=== PATIENT | female | born 1950 ===

== ENCOUNTER 2021-03-17 14:18 | Outpatient (REF) | payer MEDICARE, SELFPAY ==
--- NOTE | ~2021-03-17 | MR_ITS ---
MR LUMBAR SPINE WITHOUT IV CONTRAST CLINICAL INFORMATION: Bilateral lower extremity leg pain and weakness. COMPARISON: None available. TECHNIQUE: MRI of the lumbar spine was obtained using routine sequences without contrast. FINDINGS: S1 is partially lumbarized and shares a rudimentary disc with S2. There are 5 nonrib-bearing lumbar-type vertebral bodies. Hypoplastic ribs at the lowermost thoracic type segment. The vertebral body heights are maintained. Mild disc volume loss and disc desiccation at L3-L4, L4-L5, and L5-S1. There is no bone marrow edema. There are no acute fractures. The conus terminates at the L1 level. Bilateral renal cysts. There is dark signal intensity along the periphery of the thecal sac inseparable from the cauda equina nerve roots that is greatest at the L3-L4 through sacral levels and seen to a lesser extent along the periphery of the thecal sac throughout the remaining thoracolumbar spine, most concerning for the presence of chronic blood products in these areas. Conus terminates at the L1 level. L1-L2: Disc contour is normal. Mild bilateral facet arthropathy. No central canal stenosis and no foraminal stenosis. L2-L3: Small annular disc bulge and bilateral facet arthropathy. No central canal stenosis and no foraminal stenosis. L3-L4: Annular disc bulge with a superimposed far left lateral disc protrusion that contacts the extraforaminal left L3 nerve root. Mild narrowing of the central canal. Mild bilateral foraminal encroachment. L4-L5: Diffuse annular disc bulge and moderate bilateral facet arthropathy and ligamentum flavum thickening. Findings in concert result in mild central canal stenosis and mild bilateral foraminal encroachment. L5-S1: Diffuse annular disc bulge and moderate bilateral facet arthropathy and ligamentum flavum thickening. Prominent epidural fat. Moderate central canal stenosis. Mild bilateral foraminal encroachment. MR/MR lumbar spine wo con IMPRESSION: - Extensive intramedullary T2 signal changes involving the imaged lower thoracic spinal cord at the T10 and T11 levels extending above the thecal sac. Recommend postcontrast imaging of the lumbar spine as well as a brain MRI, head MRA, cervical spine MRI, and thoracic spine MRI with and without IV contrast, particularly given the below findings. Neurosurgical consultation advised. - There is dark signal intensity along the periphery of the thecal sac inseparable from the cauda equina nerve roots that is greatest at the L3-L4 through sacral levels and seen to a lesser extent along the periphery of the thecal sac throughout the remaining thoracolumbar spine, most concerning for the presence of chronic blood products in these areas. There is some clumping of the cauda equina nerve roots at these levels concerning for the sequela of arachnoiditis. Above follow-up imaging recommended to exclude a source of intrathecal bleeding to explain these findings. - Multilevel lumbar spondylosis, greatest at L5-S1 where multifactorial degenerative changes in epidural lipomatosis result in moderate central canal stenosis. Additional degenerative changes as discussed above. - Postoperative changes following vertebral body augmentation at the T12 level. Covering provider paged with these critical findings at 11:14 AM on 03/20/2021.
== END 2021-03-17 14:19 | disposition home or self-care (01) ==
LOC: HO.MRI 14:18
PROVIDERS: PCP Physician Assistant Medical; Visit Provider Physician Assistant Medical
DX: M54.41 Lumbago with sciatica, right side (principal)
CPT/HCPCS: 72148

== ENCOUNTER 2021-03-28 13:35 | Outpatient (REF) | payer MEDICARE, SELFPAY ==
--- NOTE | ~2021-03-28 | MR_ITS ---
EXAMINATION: MRI OF THE BRAIN WITH AND WITHOUT IV CONTRAST MRI OF THE CERVICAL SPINE WITH AND WITHOUT IV CONTRAST MRA HEAD WITHOUT CONTRAST INDICATION: Blood seen in thecal sac. COMPARISON: Lumbar spine MRI 03/17/2021. TECHNIQUE: Multiplanar multisequence MR imaging of the brain and cervical spine obtained without and following the administration of 6 mL of Gadavist without complication. Additionally, a noncontrast MRA of the head is obtained. Vascular post-processing, including 2-dimensional and 3-dimensional reformatted images were created and reviewed on an independent workstation under concurrent physician supervision. Stenoses are graded per criteria similar to NASCET. FINDINGS: BRAIN MRI: There is a developmental venous anomaly within the anterior left subinsular region. There is some mild gyriform enhancement within the left parietal and occipital lobes that is most likely related to blood brain barrier breakdown. Extensive T2 signal changes throughout the supratentorial white matter and central galileo, possibly advanced chronic microangiopathy. Chronic ischemic changes within the left deep watershed zone. There is chronic siderosis along the periphery of the left greater than right cerebral hemisphere and there are punctate foci of chronic hemosiderin staining within the occipital lobes bilaterally. There is diffuse ventricular dilatation with associated sulcal prominence, likely ex vacuo dilatation. There is no extra-axial surface collection, or herniation. The major flow voids at the skull base are preserved. There is no acute infarct on diffusion-weighted imaging. There is no intracranial hemorrhage on the gradient recalled echo acquisition. The midline structures are normal. The cerebellar tonsils are normally positioned. The cerebellum and brainstem are normal. The craniocervical junction is normal. Osseous marrow signal intensity is homogenous. The visualized soft tissues are unremarkable. CERVICAL SPINE MRI: Cervical alignment is normal. Vertebral body heights are maintained. The disc lines are preserved. There is no bone marrow edema. There are no acute fractures. There are perineural cysts bilaterally at C7-T1. No definite cervical cord signal abnormality accounting for artifact. There is no pathologic intrathecal enhancement. No significant soft tissue findings. No cervical disc herniations. No central canal stenosis and no foraminal stenosis within the thoracic spine. On the cervical spine MRI there is a possible partially imaged fluid signal intensity loculation within the left aspect of the thecal sac at T4-T5 that may mildly distort the thoracic cord which can be further assessed with the thoracic spine MRI. MRA HEAD: The anterior and posterior intracranial arterial circulations are normal in caliber without significant arterial stenosis. No acute arterial occlusions. No aneurysms and no high flow vascular malformations. MR/MR cervical spine wo/w con IMPRESSION: - A thoracic spine MRI with and without contrast is recommended as per the previous studies recommendations. On the cervical spine MRI there is a possible partially imaged fluid signal intensity loculation within the left aspect of the thecal sac at T4-T5 that may mildly distort the thoracic cord which can be further assessed with the thoracic spine MRI. There are partially imaged laminectomy changes as below this level. -There is chronic siderosis along the periphery of the left greater than right cerebral hemisphere and there are punctate foci of chronic hemosiderin staining within the occipital lobes bilaterally. - Extensive confluent T2 signal changes throughout the supratentorial white matter, possibly advanced chronic microangiopathy though nonspecific and chronic ischemic changes within the left greater than right deep watershed zone. Comparison to any prior brain imaging if available advised. - There is some mild gyriform enhancement within the left parietal and occipital lobes that is most likely related to blood brain barrier breakdown. - Left greater than right lateral ventriculomegaly, likely ex vacuo dilatation given the presence of metastases with sulcal prominence. - Unremarkable MRA of the head. - Unremarkable MRI of the cervical spine.
[2021-03-28 17:04] LABS: Blood Urea Nitrogen 28 mg/dL (9-16); Estimated Glomerular Filt Rate 43
== END 2021-03-28 13:36 | disposition home or self-care (01) ==
LOC: HO.MRI 13:35
PROVIDERS: Visit Provider Physician Assistant Medical
DX: G95.89 Other specified diseases of spinal cord (principal)
CPT/HCPCS: 36415; 70544; 70553; 72156; 82565; 84520

== ENCOUNTER 2021-03-31 13:48 | Outpatient (REF) | payer MEDICARE, SELFPAY ==
--- NOTE | ~2021-03-31 | MR_ITS ---
EXAMINATION: MRI THORACIC SPINE WITHOUT AND WITH CONTRAST MRI LUMBAR SPINE WITH CONTRAST CLINICAL INFORMATION: Lower extremity pain. Signal changes within the spinal cord. COMPARISON: Lumbar spine MRI 03/17/2021. TECHNIQUE: Multiplanar MR imaging of the thoracic spine was performed without and with contrast. Postcontrast images of the lumbar spine were also obtained. A total of 6 mL Gadavist was utilized for this examination. FINDINGS: Thoracic spine: There are chronic postoperative changes of a multilevel decompressive laminectomy extending from T5 to T7 and there is partial resection of the T4 spinous process. There is a long extramedullary intradural cystic lesion/collection along the dorsal aspect of the canal that demonstrates imaging characteristic most consistent with an arachnoid cyst. There is severe compression of the thoracic spinal cord particularly at the level of T6-T7 there is a long segment of intramedullary edema that extends from T5 to T10. There are chronic changes of a compression fracture of the T11 vertebral body. Bone cement material indicates chronic changes of a vertebral augmentation. A subtle chronic compression deformity of the T7 vertebral body is also noted. Alignment is normal. There is loss of intervertebral disc height and T2 signal intensity at multiple levels related to disc degeneration. Postcontrast images reveal no abnormal intradural enhancement. Limited visualization of intrathoracic anatomy reveals no abnormal finding. Lumbar spine: Postcontrast images of the lumbar spine reveal no abnormal intradural mass or enhancement. There are multiple well marginated benign-appearing cystic lesions visualized within both kidneys. Limited visualization the retroperitoneal anatomy reveals no abnormal finding. Psoas and paraspinal muscle groups are symmetric. MR/MR thoracic spine wo/w con IMPRESSION: There are chronic postsurgical changes within the midthoracic spine. At the site of surgery there is a long extramedullary intradural cystic lesion that most likely represents a residual or recurrent arachnoid cyst causing severe compression of the thoracic spinal cord particularly at the level of T6-T7 and there is a long segment of intramedullary edema that extends from T5 to T10. Alternative diagnostic considerations for this lesion include a spinal epidermoid cyst or neurenteric cyst therefore correlation with the patient's prior surgical report are recommended. Postcontrast imaging of the thoracic and lumbar spine is otherwise normal.
== END 2021-03-31 13:49 | disposition home or self-care (01) ==
LOC: HO.MRI 13:48
PROVIDERS: Visit Provider Physician Assistant Medical
DX: G95.89 Other specified diseases of spinal cord (principal)
CPT/HCPCS: 72149; 72157; A9585

== ENCOUNTER → 2021-09-08 10:34 | Outpatient (BNVA) | payer MEDICARE, SELFPAY | PROVIDERS: PCP Internal Medicine; Visit Provider Internal Medicine | DX: M79.604 Pain in right leg (principal); M79.605 Pain in left leg; M17.10 Unilateral primary osteoarthritis, unspecified knee; G89.0 Central pain syndrome | CPT/HCPCS: 99202 ==

== ENCOUNTER 2021-09-29 16:02 | Outpatient (REF) | payer MEDICARE, SELFPAY ==
--- NOTE | ~2021-09-29 | MR_ITS ---
EXAMINATION: MR KNEE WITHOUT CONTRAST, RIGHT CLINICAL INFORMATION: Right knee pain and swelling. Medial/anterior right knee pain for 2-3 months. COMPARISON: None. TECHNIQUE: MRI of the knee without contrast was performed using routine sequences on a high-field scanner. FINDINGS: MENISCI: Medial Meniscus: Intact. Lateral Meniscus: Intact. LIGAMENTS: Cruciate: Intact. Collateral: Intact. EXTENSOR MECHANISM: Intact. ARTICULAR CARTILAGE/BONE: Patellofemoral Compartment: Normal. Medial Compartment: Normal. Lateral Compartment: Normal. JOINT FLUID AND BURSAE: Trace joint effusion. Circumferential subcutaneous edema, most prominent anterolaterally. MR/MR knee RT wo con IMPRESSION: 1. No acute meniscal or ligamentous injury. 2. Trace joint effusion. Intact articular cartilage. No acute osseous abnormality. 3. Circumferential subcutaneous edema, most prominent anterolaterally.
== END 2021-09-29 16:03 | disposition home or self-care (01) ==
LOC: HO.MRI 16:02
PROVIDERS: Visit Provider Physical Medicine & Rehabilitation
DX: M25.561 Pain in right knee (principal)
CPT/HCPCS: 73721

== ENCOUNTER → 2022-01-13 11:13 | Outpatient (BNVA) | payer MEDICARE, SELFPAY | PROVIDERS: PCP Internal Medicine; Visit Provider Nurse Practitioner Family | DX: M17.10 Unilateral primary osteoarthritis, unspecified knee (principal); M79.604 Pain in right leg; M79.605 Pain in left leg; G89.0 Central pain syndrome | CPT/HCPCS: 99212 ==

== ENCOUNTER → 2022-01-29 14:02 | Outpatient (BNVA) | payer MEDICARE, SELFPAY | PROVIDERS: PCP Internal Medicine; Visit Provider Nurse Practitioner Family | DX: M17.10 Unilateral primary osteoarthritis, unspecified knee (principal); M79.604 Pain in right leg; M79.605 Pain in left leg; G89.0 Central pain syndrome | CPT/HCPCS: 99212 ==

== ENCOUNTER → 2022-02-27 14:00 | Outpatient (BNVA) | payer MEDICARE, SELFPAY | PROVIDERS: PCP Internal Medicine; Visit Provider Nurse Practitioner Family | DX: Z51.81 Encounter for therapeutic drug level monitoring (principal); F11.20 Opioid dependence, uncomplicated; M17.10 Unilateral primary osteoarthritis, unspecified knee; M79.604 Pain in right leg; M79.605 Pain in left leg; G89.0 Central pain syndrome | CPT/HCPCS: 99212 ==

== ENCOUNTER → 2022-03-27 12:59 | Outpatient (BNVA) | payer MEDICARE, SELFPAY | PROVIDERS: PCP Internal Medicine; Visit Provider Nurse Practitioner Family | DX: Z51.81 Encounter for therapeutic drug level monitoring (principal); F11.20 Opioid dependence, uncomplicated; M17.10 Unilateral primary osteoarthritis, unspecified knee; M79.604 Pain in right leg; M79.605 Pain in left leg; G89.0 Central pain syndrome | CPT/HCPCS: 99212 ==

== ENCOUNTER → 2022-05-22 12:46 | Outpatient (BNVA) | payer MEDICARE, SELFPAY | PROVIDERS: PCP Internal Medicine; Visit Provider Nurse Practitioner Family | DX: Z51.81 Encounter for therapeutic drug level monitoring (principal); M17.10 Unilateral primary osteoarthritis, unspecified knee; G89.0 Central pain syndrome; M79.604 Pain in right leg; M79.605 Pain in left leg | CPT/HCPCS: 99212 ==

== ENCOUNTER → 2023-04-23 10:29 | Outpatient (BNVA) | payer MEDICARE, SELFPAY | PROVIDERS: PCP Internal Medicine; Visit Provider Internal Medicine | DX: M54.16 Radiculopathy, lumbar region (principal) | CPT/HCPCS: 99212 ==

== ENCOUNTER → 2023-05-07 11:13 | Outpatient (BNVA) | payer MEDICARE, SELFPAY | PROVIDERS: PCP Internal Medicine; Visit Provider Nurse Practitioner Family | DX: G57.02 Lesion of sciatic nerve, left lower limb (principal); M54.16 Radiculopathy, lumbar region | CPT/HCPCS: 99212 ==

== ENCOUNTER 2023-05-31 13:30 | Outpatient (AMB) | payer MEDICARE, SELFPAY ==
--- NOTE | 2023-05-31 13:30 | A.OFFVIS_ITS ---
Intake Intake Visit Reasons: Gabapentin discussion per Dr. Pena Allergies Penicillins [PCN] Allergy (Severe, Verified 05/07/23 11:24) RASH erythromycin base [ERYTHROMYCIN BASE] Allergy (Intermediate, Verified 05/07/23 11:24) RASH HPI Gabapentin discussion per Dr. Pena HPI Details 72-year-old female presenting today on tele-visit for a discussion of potential gabapentin related side effects. She is currently on gabapentin 600 mg B.I.D. with good pain relief. Shortly after starting the current dose of gabapentin, she started experiencing some short-term memory impairment and occasional confusion after starting on gabapentin 600 mg BID. She also has some feelings of urinary incontinence, loss of bladder control, saddle anesthesia and weakness in her right arm and leg. She is not actively performing exercises in her occupational therapy sessions. She has had a history of UTIs in the past that have mimicked strokes in the past. She has a scheduled appointment for a lumbar MRI scan on 06/02/23. She denies fever, slurry speech, or facial drooping. [facility] Medical History (Updated 05/31/23 @ 13:43 by Tony Pena MD) Alcohol abuse Atherosclerosis of abdominal aorta Atrial fibrillation Cardiomyopathy Central pain syndrome Cerebral microvascular disease CVA (cerebral vascular accident) Epidural hematoma History of colon polyps Hyperlipidemia Hypertension Hypothyroidism Impaired fasting glucose Leg pain, bilateral Major depression in partial remission Microscopic hematuria Neurogenic bladder Numbness of feet Osteoarthritis Osteoarthritis, knee Osteoporosis SAH (subarachnoid hemorrhage) Seizure disorder Spasticity Thoracic myelopathy Vertebral compression fracture Surgical History H/O heart valve replacement with mechanical valve H/O maze procedure H/O of hysterectomy with bilateral oophorectomy History of cataract surgery Hx of cholecystectomy Mitral valve replaced Review of Systems Const All systems reviewed & are unremarkable except as noted in HPI and below Results Reviewed Results Reviewed: No imaging is available for review. Assessment & Plan Assessment & Plan (1) Neurogenic bladder: Code(s): N31.9 - Neuromuscular dysfunction of bladder, unspecified (2) Left lumbar radiculitis: Code(s): M54.16 - Radiculopathy, lumbar region (3) Leg pain, bilateral: Code(s): M79.604 - Pain in right leg; M79.605 - Pain in left leg Plan 1. I recommended the patient to wean down on gabapentin. She will stop the m orning dose starting tomorrow and then cut the nighttime dose in half over the following 2 days. ? 2. I also encouraged the patient to follow up with her neurologist for her incontinence and loss of bladder control associated with upper extremity weakness. Her last lumbar spine MRI was quite reassuring in terms of any central mechanical compression. Last cervical MRI showed some cystic lesions around the C7 area but no abnormal cord signal. I ordered a UA to rule out a UTI as a possible cause of her neurologic symptoms. ? 3. The patient will keep her appointment for L-spine MRI scan on 06/02/23. Scribed for Dr. Pena by Peter Soto, medical cash poster, on 05/31/2023. I, Dr. Pena, have personally reviewed and agree with the information entered by the scribe. Orders: Orders UA CC w/rflx Micro + Cult 05/31/23 N31.9 - Neuromuscular dysfunction of bladder, unspecified Telehealth Telehealth Location of provider rendering services: practice address Location of patient: address on file Patient Identification confirmed using: Name, : Yes Telehealth method: voice only Patient verbally consented to treatment: Yes Patient verbally consented to billing insurance company: Yes Patient informed of any privacy concerns related to visit: Yes Minutes spent on Phone/Video with Pt.: 15 Coding Level of Care Code Tele Est Pt Level 4 (55814) Diagnoses Neurogenic bladder N31.9 Left lumbar radiculitis M54.16 Leg pain, bilateral M79.604; M79.605
== END 2023-05-31 13:31 | disposition home or self-care (01) ==
LOC: HO.PMC 13:30
PROVIDERS: PCP Physician Assistant Medical; Visit Provider Internal Medicine
DX: N31.9 Neuromuscular dysfunction of bladder, unspecified (principal); M54.16 Radiculopathy, lumbar region; M79.604 Pain in right leg; M79.605 Pain in left leg
CPT/HCPCS: 99443

== ENCOUNTER → 2023-05-31 13:30 | Outpatient (BNVA) | payer MEDICARE, SELFPAY | PROVIDERS: PCP Physician Assistant Medical; Visit Provider Internal Medicine ==

== ENCOUNTER 2023-06-02 15:17 | Outpatient (REF) | payer MEDICARE, SELFPAY ==
--- NOTE | ~2023-06-02 | MR_ITS ---
EXAMINATION: MR LUMBAR SPINE WITHOUT CONTRAST CLINICAL INFORMATION: Lumbar radiculopathy. COMPARISON: Thoracic and lumbar spine MRI from 03/31/2021. Lumbar spine MRI from 03/17/2021. TECHNIQUE: MRI of the lumbar spine was obtained using routine sequences without contrast. FINDINGS: Transitional vertebral anatomy. Of note, there are differing numbering schematics used in prior exams. Prior imaging of the thoracic spine demonstrated 12 rib-bearing thoracic type vertebrae. In this setting, there is right hemisacralization of L5 with fusion of the right transverse process of L5 with the sacral ala. There is a rudimentary L5-S1 intervertebral disc. Prior compression deformity with vertebral augmentation cement in place at the level of T11. Minimal degenerative retrolisthesis of L4 on L5. Otherwise, normal anatomic alignment. Mild to moderate degenerative disc disease at all lumbar levels. Associated mixed Modic type discogenic endplate changes including mild Modic type I discogenic edema at L1-L2, L3-L4, and L4-L5. No additional suspicious marrow edema. The remaining vertebral body heights are largely maintained. Similar to prior exam, there is partial centralization of the cauda equina nerve roots within the thecal sac as well as a band of T2 hypointense material along the ventral margin of the cauda equina nerve roots (most notably from L1-L5). The conus medullaris terminates at the level of T12. The distal spinal cord is normal in appearance. Moderate subcutaneous edema within the posterior soft tissues of the back from T12-S1. No additional significant abnormalities of the paraspinal musculature. Multiple bilateral T2 hyperintense renal cysts bilaterally (no follow-up imaging recommended based on current guidelines at the time of examination). Otherwise, limited evaluation of the intra-abdominal structures without significant abnormalities. The abdominal aorta is of normal contour and caliber. AXIAL SPINAL LEVELS: T10-T11: Normal annular contour. There is moderate bilateral facet joint arthropathy. There is moderate left and mild right normal foraminal stenosis. There is no spinal canal stenosis. T11-T12: Normal annular contour. There is moderate bilateral facet joint arthropathy. There is no neural foraminal stenosis. There is no spinal canal stenosis. T12-L1: Shallow diffuse disc bulge. There is moderate bilateral facet joint arthropathy. There is mild left and no right neural foraminal stenosis. There is no spinal canal stenosis. L1-L2: Shallow diffuse disc bulge. There is moderate bilateral facet joint arthropathy. There is mild bilateral neural foraminal stenosis. There is no spinal canal stenosis. L2-L3: Mild diffuse disc bulge. There is moderate bilateral facet joint arthropathy. There is mild bilateral neural foraminal stenosis. There is no spinal canal stenosis. L3-L4: Mild diffuse disc bulge. There is moderate bilateral facet joint arthropathy. There is moderate bilateral neural foraminal stenosis. There is narrowing of the subarticular zones with mild spinal canal stenosis centrally. L4-L5: Moderate diffuse disc bulge with posterior osseous ridging. There is moderate bilateral facet joint arthropathy. There is moderate right and mild left neural foraminal stenosis. There is mild spinal canal stenosis. L5-S1: Rudimentary disc. There is moderate bilateral facet joint arthropathy. There is no neural foraminal stenosis. There is no spinal canal stenosis. MR/MR lumbar spine wo con IMPRESSION: 1. Transitional vertebral anatomy. Of note, there are differing numbering schematics used in prior exams. For the purposes of this report (and correlating with findings on prior thoracic spine MRI) there is right hemisacralization of L5. 2. Similar to prior exam, there is partial centralization of the cauda equina nerve roots within the thecal sac as well as a band of T2 hypointense material along the ventral margin of the cauda equina nerve roots (most notably from L1-L5). This may represent sequela of a chronic spinal subdural collection and/or chronic arachnoiditis. 3. Moderate multilevel degenerative spondyloarthropathy of the lumbar spine as described in detail above. Most notably, there are mild spinal canal stenoses at L3-L4 and L4-L5. Mild to moderate neural foraminal stenoses at T10-T11 and from L3-L5.
== END 2023-06-02 15:18 | disposition home or self-care (01) ==
LOC: HO.MRI 15:17
PROVIDERS: PCP Physician Assistant Medical; Visit Provider Internal Medicine
DX: M54.16 Radiculopathy, lumbar region (principal)
CPT/HCPCS: 72148

== ENCOUNTER 2023-06-09 13:33 | Day surgery (SDC) | payer MEDICARE, SELFPAY ==
[2023-06-09 13:51] VITALS: BMI 26.4
[2023-06-09 15:56] VITALS: BP 111/57; PULSE 75; RESP 16; TEMP 36.7; O2SAT 94
--- NOTE | 2023-06-09 15:58 | MHC.SHP ---
Pre-Procedural Eval Section A Date of Service: 06/09/23 The patient is an INPATIENT: No Changes since office visit: Yes Patient answered all questions The History & Physical has been completed within 30 days and I have reviewed it.: Yes Section B Chief Complaint: Sciatic neuropathy Relevant Family History (Specify if Yes): No Relevant Social History: Other (specify) Present Medications: see Short Stay Collaborative assessment Medical History: Significant History History of Previous Operations: Relevant previous surgery/procedure and date(s) Allergies: Allergies Allergy/AdvReac Type Severity Reaction Status Date / Time Penicillins [PCN] Allergy Severe RASH Verified 05/07/23 11:24 erythromycin base Allergy Intermediate RASH Verified 05/07/23 11:24 [ERYTHROMYCIN BASE] amiodarone AdvReac Unknown Unknown Verified 06/09/23 13:48 Review of Systems Sugical H&P ROS: Negative: Constitution, Cardiovascular and Respiratory and Yes, Specify: Genitourinary (UTI symptoms resolved with antibiotic course last week) Exam Surgical H&P Exam: Normal: HEENT, Normal: Heart and Normal: Lungs Plan Diagnosis/Plan: Unchanged I have reviewed the history and physical and performed a pertinent physical examination on my patient. No changes have occurred unless specified. Proceed with temporary left sciatic nerve stimulator placement. Time Spent With Patient Time: Total time managing care of this patient today ____ minutes.
--- NOTE | 2023-06-09 15:59 | P.BOP_ITS ---
Brief Operative Note Date of Service: 06/09/23 Pre-op diagnosis: Left sciatic neuropathy, intractable left leg pain Post-op diagnosis: same Procedure: Temporary left sciatic nerve stimulator placement Implants: [employer] temporary PNS system Surgeon: Tony Pena MD Anesthesia: local Was an [employer]or used for this Procedure?: No Estimated blood loss (mL): 1 Pathology: none sent Condition: stable Disposition: same day
--- NOTE | 2023-06-09 16:00 | P.OP_ITS ---
Operative Note Operative Note Date of Service: 06/09/23 Narrative: Peripheral Nerve Stimulation Temporary Lead Placement, Ultrasound-Guided, Sciatic Nerve, Left ? After the risks, benefits and alternatives were discussed with the patient and informed consent was obtained, patient was placed in the supine position and padded to foster comfort. Appropriate skin and bony landmarks were identified, and pertinent vascular structures were located. The skin overlying the needle entry site was prepped and draped in sterile fashion. Ultrasound was used to identify the popliteal artery, the peroneal nerve and the tibial nerve. After identifying and marking the intended target along the course of the sciatic nerve, the skin around the planned entry point and the subcutaneous tissues were injected with local anesthetic. An introducer needle and stimulating probe were assembled, inserted and advanced along the intended course of the sciatic nerve, taking care to maintain the proper depth of insertion as the introducer was advanced under ultrasound guidance. An out of plane approach was utilized to visualize needle placement in proximity to the peroneal and tibial components of the sciatic nerve. The introducer needle was placed midway between the two branches of the sciatic nerve. Care was taken not to puncture the popliteal artery. Multiple stimulation parameters were used to deliver stimulation to the sciatic nerve branches in concert with stimulating at multiple positions around the nerve. Nerve target acquisition was confirmed noting generation of sensory and mild motor effects (paresthesia, muscle tension, etc) in the posterior calf and ankle; correspondi ng to the distribution of the sciatic nerve as well as the patient's typical region of pain. Various electrical parameter combinations were tested, and the lead location was adjusted (physically relocated under ultrasound guidance) until the patient indicated calf and ankle paresthesia and tension overlapping the distribution of the patient?s typical region of pain. The stimulating probe was removed from the introducer and a percutaneous lead was guided through the needle and delivered to a location in similar proximity to the nerve. Final location was verified with electrical stimulation and documented. The introducer needle was removed, and the exposed end of the percutaneous lead was attached to an external stimulator unit. Various electrical parameter combinations were again tested until the patient indicated paresthesia and muscle tension overlapping the distribution of the patient?s typical region of pain. After confirming that lead impedance was in the normal range, the external unit was detached, the needle was removed, and the lead was anchored at the skin. The lead was threaded into the connector block and electrical continuity and desired patient response was confirmed. The connector block was attached to the external stimulator unit. The site was covered with a sterile occlusive dressing.? A final ultrasound image was taken to document final placement. The patient was observed for stability of vital signs and comfort.
== END 2023-06-09 16:19 | disposition home or self-care (01) ==
PROVIDERS: PCP Physician Assistant Medical; Visit Provider Internal Medicine
PROC: (CPT 64555; principal; 2023-06-09 15:00)
DX: M54.16 Radiculopathy, lumbar region (principal); I10 Essential (primary) hypertension; Z88.0 Allergy status to penicillin; Z88.8 Allergy status to other drugs, medicaments and biological substances
CPT/HCPCS: 64555; C1778

== ENCOUNTER → 2023-06-09 13:33 | Outpatient (BNV) | payer MEDICARE, SELFPAY | PROVIDERS: PCP Physician Assistant Medical; Visit Provider Internal Medicine | DX: M54.32 Sciatica, left side (principal); M79.605 Pain in left leg | CPT/HCPCS: 64555 ==

== ENCOUNTER 2023-08-06 09:16 | Outpatient (AMB) | payer MEDICARE, SELFPAY ==
--- NOTE | 2023-08-06 09:36 | MHC.OFFVIS ---
Intake Vital Signs 08/06/23 09:38 Height 5 ft 1 in BP 112/51 L Blood Pressure Location Rt brachial Position Sitting Respiration 14 Pulse 55 Pulse Source Pulse Oximeter Pulse Oximetry (%) 96 Oxygen Delivery Method Room Air Intake Visit Reasons: Sprint removal Allergies Penicillins [PCN] Allergy (Severe, Verified 08/06/23 09:37) RASH erythromycin base [ERYTHROMYCIN BASE] Allergy (Intermediate, Verified 08/06/23 09:37) RASH amiodarone Adverse Reaction (Unknown, Verified 08/06/23 09:37) Unknown Medication List - Last Reconciled 08/06/23 by Bettina Padron LPN aspirin 81 mg PO DAILY atorvastatin 40 mg PO BEDTIME biotin 1,000 mcg PO DAILY calcium carbonate-vitamin D3 600 mg-2.5 mcg (100 unit) caps PO digoxin 125 mcg PO DAILY duloxetine 60 mg PO DAILY estradiol 0.01%(0.1mg/gram) 1 g vaginal 3XW furosemide (Lasix) 10 mg PO QAM gabapentin 600 mg PO BID lactulose (Constulose) 30 mL PO BID levetiracetam (Keppra) 500 mg PO BID levothyroxine (Euthyrox) 175 mcg PO DAILY metoprolol succinate ER 50 mg PO DAILY multivitamin 1 tab PO DAILY omeprazole 20 mg PO DAILY HPI Sprint removal HPI Details 72-year-old female who presents today to the office for a sprint removal. She reports no pain in her leg while she is currently in the office. She is unsure of how helpful the device was. She is also unsure if she is currently taking any gabapentin. Past procedure: 06/09/23: Peripheral Nerve Stimulation Temporary Lead Placement, Ultrasound-Guided, Sciatic Nerve, Left: Resolution of leg pain PFSH Medical History Osteoarthritis, knee Central pain syndrome Leg pain, bilateral Vertebral compression fracture Thoracic myelopathy Spasticity Seizure disorder SAH (subarachnoid hemorrhage) Osteoporosis Osteoarthritis Numbness of feet Neurogenic bladder Microscopic hematuria Major depression in partial remission Impaired fasting glucose Hypothyroidism Hypertension Hyperlipidemia History of colon polyps Epidural hematoma CVA (cerebral vascular accident) Cerebral microvascular disease Cardiomyopathy Atrial fibrillation Atherosclerosis of abdominal aorta Alcohol abuse Surgical History H/O maze procedure H/O of hysterectomy with bilateral oophorectomy Hx of cholecystectomy History of cataract surgery H/O heart valve replacement with mechanical valve Mitral valve replaced Review of Systems Const All systems reviewed & are unremarkable except as noted in HPI and below Physical Exam Vital Signs: Last Vital Signs Pulse 55 08/06/23 09:38 Resp 14 08/06/23 09:38 BP 112/51 L 08/06/23 09:38 Pulse Ox 96 08/06/23 09:38 Oxygen Delivery Method Room Air 08/06/23 09:38 General: Appears afebrile. Alert and oriented. Mood and affect appropriate. Follows and participates in conversation appropriately. Respiratory effort is unlabored. Able to transition from sit to stand unassisted. Ambulates with bilaterally normal heel strike and toe off. Lead removed with tip intact. Results Reviewed Results Reviewed: No imaging is available for review. Assessment & Plan Assessment & Plan (1) Leg pain, bilateral: Code(s): M79.604 - Pain in right leg; M79.605 - Pain in left leg Plan The site was clean, dry, and intact. The patient reports no leg pain currently. The sprint was removed today in the office. The patient will follow up P.R.N. I encouraged her daughter to have the patient's call me when he is discharged from the hospital so we can discuss more regarding how helpful this therapy was for Radha. Scribed for Dr. Pena by Peter Soto, medical affairs specialist, on 08/06/2023. I, Dr. Pena, have personally reviewed and agree with the information entered by the scribe. Coding Level of Care Code Est Pt Level 3 (38472) Diagnoses Leg pain, bilateral M79.604; M79.605
[2023-08-06 09:38] VITALS: BP 112/51; PULSE 55; RESP 14; O2SAT 96
== END 2023-08-06 09:48 | disposition home or self-care (01) ==
PROVIDERS: PCP Internal Medicine; Visit Provider Internal Medicine
DX: M79.604 Pain in right leg (principal); M79.605 Pain in left leg
CPT/HCPCS: 99213

== ENCOUNTER → 2023-08-06 09:16 | Outpatient (BNVA) | payer MEDICARE, SELFPAY | PROVIDERS: PCP Internal Medicine; Visit Provider Internal Medicine | DX: Z45.42 Encounter for adjustment and management of neurostimulator (principal); M79.604 Pain in right leg; M79.605 Pain in left leg | CPT/HCPCS: 99212 ==

== ENCOUNTER 2023-08-20 09:58 | Outpatient (AMB) | payer MEDICARE, SELFPAY ==
--- NOTE | 2023-08-20 09:59 | A.OFFVIS_ITS ---
Intake Intake Visit Reasons: Knee pain Allergies Penicillins [PCN] Allergy (Severe, Verified 08/06/23 09:37) RASH erythromycin base [ERYTHROMYCIN BASE] Allergy (Intermediate, Verified 08/06/23 09:37) RASH amiodarone Adverse Reaction (Unknown, Verified 08/06/23 09:37) Unknown HPI Knee pain HPI Details 72-year-old female who presents today to via tele-visit for knee pain. She states that her left leg pain was resolved with the PNS trial. She was able to wean off the gabapentin and has had no pain since the device was removed. Today she reports bilateral thigh and knee pain that has been going off and on. It is not related to weight-bearing. It can come on even when she is lying down. She has not received any knee injections in the past. She states that her pain is localized on the upper right side. She is not sure if her pain is on the outside or inside. Past procedure: 06/09/23: Peripheral Nerve Stimulation T emporary Lead Placement, Ultrasound- Guided, Sciatic Nerve, Left: Resolution of left leg pain below the knee. PFSH Medical History Osteoarthritis, knee Central pain syndrome Leg pain, bilateral Vertebral compression fracture Thoracic myelopathy Spasticity Seizure disorder SAH (subarachnoid hemorrhage) Osteoporosis Osteoarthritis Numbness of feet Neurogenic bladder Microscopic hematuria Major depression in partial remission Impaired fasting glucose Hypothyroidism Hypertension Hyperlipidemia History of colon polyps Epidural hematoma CVA (cerebral vascular accident) Cerebral microvascular disease Cardiomyopathy Atrial fibrillation Atherosclerosis of abdominal aorta Alcohol abuse Surgical History H/O maze procedure H/O of hysterectomy with bilateral oophorectomy Hx of cholecystectomy History of cataract surgery H/O heart valve replacement with mechanical valve Mitral valve replaced Review of Systems Const All systems reviewed & are unremarkable except as noted in HPI and below Results Reviewed Results Reviewed: 06/02/23: MR LUMBAR SPINE WITHOUT CONTRAST FINDINGS: Transitional vertebral anatomy. Of note, there are differing numbering schematics used in prior exams. Prior imaging of the thoracic spine demonstrated 12 rib-bearing thoracic type vertebrae. In this setting, there is right hemisacralization of L5 with fusion of the right transverse process of L5 with the sacral ala. There is a rudimentary L5-S1 intervertebral disc. Prior compression deformity with vertebral augmentation cement in place at the level of T11. Minimal degenerative retrolisthesis of L4 on L5. Otherwise, normal anatomic alignment. Mild to moderate degenerative disc disease at all lumbar levels. Associated mixed Modic type discogenic endplate changes including mild Modic type I discogenic edema at L1-L2, L3-L4, and L4-L5. No additional suspicious marrow edema. The remaining vertebral body heights are largely maintained. Similar to prior exam, there is partial centralization of the cauda equina nerve roots within the thecal sac as well as a band of T2 hypointense material along the ventral margin of the cauda equina nerve roots (most notably from L1-L5). The conus medullaris terminates at the level of T12. The distal spinal cord is normal in appearance. Moderate subcutaneous edema within the posterior soft tissues of the back from T12-S1. No additional significant abnormalities of the paraspinal musculature. Multiple bilateral T2 hyperintense renal cysts bilaterally (no follow-up imaging recommended based on current guidelines at the time of examination). Otherwise, limited evaluation of the intra-abdominal structures without significant abnormalities. The abdominal aorta is of normal contour and caliber. AXIAL SPINAL LEVELS: T10-T11: Normal annular contour. There is moderate bilateral facet joint arthropathy. There is moderate left and mild right normal foraminal stenosis. There is no spinal canal stenosis. T11-T12: Normal annular contour. There is moderate bilateral facet joint arthropathy. There is no neural foraminal stenosis. There is no spinal canal stenosis. T12-L1: Shallow diffuse disc bulge. There is moderate bilateral facet joint arthropathy. There is mild left and no right neural foraminal stenosis. There is no spinal canal stenosis. L1-L2: Shallow diffuse disc bulge. There is moderate bilateral facet joint arthropathy. There is mild bilateral neural foraminal stenosis. There is no spinal canal stenosis. L2-L3: Mild diffuse disc bulge. There is moderate bilateral facet joint arthropathy. There is mild bilateral neural foraminal stenosis. There is no spinal canal stenosis. L3-L4: Mild diffuse disc bulge. There is moderate bilateral facet joint arthropathy. There is moderate bilateral neural foraminal stenosis. There is narrowing of the subarticular zones with mild spinal canal stenosis centrally. L4-L5: Moderate diffuse disc bulge with posterior osseous ridging. There is moderate bilateral facet joint arthropathy. There is moderate right and mild left neural foraminal stenosis. There is mild spinal canal stenosis. L5-S1: Rudimentary disc. There is moderate bilateral facet joint arthropathy. There is no neural foraminal stenosis. There is no spinal canal stenosis. IMPRESSION: 1. Transitional vertebral anatomy. Of note, there are differing numbering schematics used in prior exams. For the purposes of this report (and correlating with findings on prior thoracic spine MRI) there is right hemisacralization of L5. 2. Similar to prior exam, there is partial centralization of the cauda equina nerve roots within the thecal sac as well as a band of T2 hypointense material along the ventral margin of the cauda equina nerve roots (most notably from L1- L5). This may represent sequela of a chronic spinal subdural collection and/or chronic arachnoiditis. 3. Moderate multilevel degenerative spondyloarthropathy of the lumbar spine as described in detail above. Most notably, there are mild spinal canal stenoses at L3-L4 and L4-L5. Mild to moderate neural foraminal stenoses at T10-T11 and from L3-L5. 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 Her MRI is not significant for any mechanical compressive issues but does have some subtle signs of chronic arachnoiditis that might be leading to nerve irritation. We had undertaken the sciatic nerve stimulator for lower leg pain in a similar setting and it was effective for that target area. I offered to place a femoral nerve stimulator for her thigh and knee pain which may work similarly and could be done without the need to potentially stop her Coumadin. She is hesitant to undertake another round of PNS therapy at this time. Once again I offered lumbar spinal cord stimulation as a potential therapy which would require the Coumadin to be stopped and bridge with Lovenox. They are aware of this option and will let me know whenever they would like to proceed further with it. Scribed for Dr. Pena by Peter Soto, medical planner, on 08/20/2023. I, Dr. Pena, have personally reviewed and agree with the information entered by the scribe. Telehealth Telehealth Location of provider rendering services: practice address Location of patient: address on file Patient Identification confirmed using: Name, : Yes Telehealth method: video Patient verbally consented to treatment: Yes Patient verbally consented to billing insurance company: Yes Patient informed of any privacy concerns related to visit: Yes Minutes spent on Phone/Video with Pt.: 16 Coding Level of Care Code Tele Est Pt Level 4 (14110) Diagnoses Left lumbar radiculitis M54.16 Arachnoiditis G03.9
--- OUTSIDE RECORDS SUMMARY | 2023-08-20 10:00 | XMS_ITS | Continuity of Care Document ---
Author Name Unknown Organization [facility] Address [address] [place] [phone]- Care Team Providers Care Horticultural Farmworker Name Role Phone Concetta Kingsley Primary Care Physician ( [phone] Encounter [facility] Date(s): 08/03/23 - 08/10/23 [facility] [address] [place] [id number]- Attending Physician: Armen Urban MD Referring Physician: Concetta Kingsley Allergies, Adverse Reactions, Alerts Substance Reaction Severity Status erythromycin Nausea Active penicillin anaphalaxis Active Amiodarone Hydrochloride HALLUCINATING Ac tive Immunizations Given and Recorded Vaccine Date Status Refusal Reason SARS-CoV-2 (COVID-19) mRNA-1273 vaccine 04/18/22 R ecorded SARS-CoV-2 (COVID-19) mRNA-1273 vaccine 12/03/21 R ecorded SARS-CoV-2 (COVID-19) mRNA-1273 vaccine 03/07/21 R ecorded SARS-CoV-2 (COVID-19) mRNA-1273 vaccine 02/07/21 R ecorded pneumococcal 23-valent vaccine 12/05/10 Given Pneumococcal Vaccine (oldterm) 1 12/22/04 Given influenza virus vaccine, inactivated 2 12/22/04 Gi aaron 1Result Comment: Lot #[id number] 2Result Comment: lot # [id number] Medications acetaminophen 325 mg oral tablet 650 mg, 2, tablet, By Mouth, Every 4 hours, Refills 0, Maintenance, 03/14/19 9:25:30 EDT Start Date: 03/14/19 Status: Ordered alendronate 70 mg oral tablet 1 tablet, By Mouth, Every week, OR MEDICATION OF THE DAY., # 12 tablet, 4 Refills, Maintenance, 01/26/23 11:51:00 EST, [facility] WBP, 155, cm, 01/18/23 8:51:00 EST, Height, 68.4, kg,09/15/22 9:47:00 EDT, Dry Weight Start Date: 01/26/23 Status: Ordered aspirin 81 mg oral enteric coated tablet 1 tablet, By Mouth, Daily, # 30 tablet, 0 Refills, Maintenance, EC Tablet Start Date: 10/19/11 Status: Ordered atorvastatin 40 mg oral tablet 1 tablet = 40 mg, By Mouth, Daily at supper, 0 Refills, Maintenance Start Date: 03/14/19 Status: Ordered biotin 1000 mcg oral tablet 1 tablet = 1,000 mcg, By Mouth, Daily, # 30 tablet, 0 Refills, Maintenance, 06/04/22 14:36:00 EDT, Tablet, Partial fill upon patient request if the prescription is for a schedule II opioid drug. Start Date: 06/04/22 Status: Ordered Botox 100 units injection See Instructions, 200 units for MD to inject, # 1 kit, 3 Refills, Maintenance, 11/05/22 20:25:00 EST, Partial fill upon patient request if the prescription is for a schedule II opioid drug. Start Date: 11/05/22 Status: Ordered Caltrate 600 + D 2 tablets, By Mouth, Daily, 0 Refills, Maintenance, 06/04/22 14:25:00 EDT, Partial fill upon patient request if the prescription is for a schedule II opioid drug. Start Date: 06/04/22 Status: Ordered Circaid JuxtaFit wraps Circaid JuxtaFit wraps, See Instructions, # 2 each, Refills 0, Tot. Refills 0, Maintenance, Dx: history of stroke, right hemiparesis with spasticity, wheelchair-bound, edema of both lower [id number] mmHg, 07/09/22 10:19:00 EDT, Supply Start Date: 07/09/22 Status: Ordered compression anklet socks compression anklet socks, See Instructions, # 5 each, Refills 0, Tot. Refills 0, Maintenance, For use with the circaid juxtafit wraps to control swelling, 07/09/22 10:21:00 EDT, Supply Start Date: 07/09/22 Status: Ordered digoxin 0.125 mg oral tablet 0.125 mg, By Mouth, Daily, Refills 0, Maintenance, 01/06/19 11:56:51 EST Start Date: 01/06/19 Status: Ordered docusate sodium 100 mg oral capsule = 100 mg, By Mouth, Daily at supper, 0 Refills, Maintenance, 09/14/22 22:46:00 EDT, Partial fill upon patient request if the prescription is for a schedule II opioid drug. Start Date: 09/14/22 Status: Ordered docusate sodium 150 mg/15 ml oral liquid 10 mL = 100 mg, By Mouth, 2 times a day, 0 Refills, Maintenance, 01/06/19 11:58:28 EST, Liquid Start Date: 01/06/19 Status: Ordered duloxetine 20 mg oral enteric coated capsule 2 capsule = 40 mg, By Mouth, Daily, 0 Refills, Maintenance, 03/14/19 9:24:09 EDT Start Date: 03/14/19 Status: Ordered furosemide 20 mg oral tablet 20 mg, 1, tablet, By Mouth, Daily, Refills 0, Maintenance, 07/09/22 10:03:00 EDT, Partial fill uponpatient request if the prescription is for a schedule II opioid drug. Start Date: 07/09/22 Status: Ordered gabapentin 600 mg oral tablet 1 tablet = 600 mg, By Mouth, 2 times a day, # 90 tablet, 5 Refills, Maintenance, 06/04/22 14:21:00 EDT, Tablet, Partial fill upon patient request if the prescription is for a schedule II opioid drug. Start Date: 06/04/22 Status: Ordered Gemtesa 75 mg oral tablet 1 tablet = 75 mg, By Mouth, Daily at bedtime, # 30 tablet, 0 Refills, Maintenance, 06/04/22 14:34:00 EDT, Tablet, Partial fill upon patient request if the prescription is for a schedule II opioid drug. Start Date: 06/04/22 Status: Ordered Keppra 500 mg oral tablet 1 tablet = 500 mg, By Mouth, 2 times a day, 0 Refills, Maintenance, 01/06/19 11:59:51 EST, Tablet Start Date: 01/06/19 Status: Ordered Lactulose 0 Refills, Maintenance, 05/19/23 14:28:00 EDT, Partial fill upon patient request if the prescription is for a schedule II opioid drug. Start Date: 05/19/23 Status: Ordered levothyroxine 175 mcg (0.175 mg) oral capsule 1 capsule = 175 mcg, By Mouth, Daily, # 30 capsule, 0 Refills, Maintenance, 09/14/22 22:43:00 EDT, Capsule, Partial fill upon patient request if the prescription is for a schedule II opioid drug. Start Date: 09/14/22 Status: Ordered metoprolol 50 mg oral tablet 50 mg, 1, tablet, By Mouth, Daily, Refills 0, Maintenance, 09/09/22 10:43:00 EDT, Partial fill uponpatient request if the prescription is for a schedule II opioid drug. Start Date: 09/09/22 Status: Ordered Multivitamin With Minerals 1 tablet, By Mouth, Daily, 0 Refills, Maintenance, 03/14/19 9:22:00 EDT Start Date: 03/14/19 Status: Ordered Omeprazole By Mouth, Daily, 0 Refills, Maintenance, 05/19/23 14:28:00 EDT, Partial fill upon patient request if the prescription is for a schedule II opioid drug. Start Date: 05/19/23 Status: Ordered PreforMix P-2 PreforMix P-2, See Instructions, # 180 Gm, Refills 0, Tot. Refills 0, Maintenance, Ketamine 10%,Baclofen 2%, Gabapentin 10%,imipramine 3%, Nifedipine 2%, Bupivacaine 2% in Liposomal cream, 11/17/18 11:31:45 EST, Compound Start Date: 11/17/18 Status: Ordered senna - oral tablet 2 tablet, By Mouth, Daily, PRN for constipation, daily dosing, no prn, # 60 tablet, 0 Refills, Maintenance, 09/09/22 10:37:00 EDT, Tablet, Partial fill upon patient request if the prescription is fora schedule II opioid drug. Start Date: 09/09/22 Status: Ordered warfarin 3 mg oral tablet 1 tablet = 3 mg, By Mouth, Daily, wednesday, wednesday, wednesday, , wednesday, # 30 tablet, 0 Refills, Maintenance, 09/14/22 22:41:00 EDT, Tablet, Partial fill upon patient request if the prescription is for a schedule II opioid drug. Start Date: 09/14/22 Status: Ordered warfarin 4 mg oral tablet 1 tablet = 4 mg, By Mouth, Daily, taken Wednesday, # 30 tablet, 0 Refills, Maintenance, 09/14/22 22:41:00 EDT, Tablet, Partial fill upon patient request if the prescription is for a schedule II opioid drug. Start Date: 09/14/22 Status: Ordered Problem List Condition Confirmation Course Effective Dates Status Health St atus Informant CVA (cerebrovascular accident) Confirmed Active COVID-19 1 Confirmed 09/16/22 Active PAF (paroxysmal atrial fibrillation) Confirmed Active 1Problem added by Discern Expert Vital Signs Most recent to oldest [Reference Range]: 1 Height 155 cm (08/03/23 11:06 AM) Oxygen Saturation [94-100 %] 96 % (08/03/23 11:06 AM) Pulse Rate [55-90 bpm] 60 bpm (08/03/23 11:06 AM) Blood Pressure [90-138/55-84 mm Hg] 120/ 44mm Hg (08/03/23 11:06 AM) Mode of Delivery (Oxygen) Room air (08/03/23 11:06 AM) Blood pressure sites Arm, right (08/03/23 11:06 AM) Social History Social History Type Response Smoking Status Former smoker entered on: 08/26/17 Sex Patient Care team information Care Team Personnel Name: Rosa Patterson RN Position: [facility] RN Member Role: Primary Care Nurse Name: Karyna Alvarez RN Position: [facility] RN Member Role: Primary Care Nurse Name: Diana Love RN Position: [facility] AMB Nurse Member Role: Primary Care Nurse Name: Clive Diamond RN Position: [facility] RN Member Role: Primary Care Nurse Name: Balbina Ma RN Position: [facility] AMB Nurse Member Role: Primary Care Nurse Name: Marija Maurer RN Position: [facility] RN Member Role: Primary Care Nurse Name: Dolores Johnson RN Position: [facility] Slick RN Member Role: Primary Care Nurse Name: Era Donis RN Position: [facility] RN Member Role: Primary Care Nurse Name: Tello Handy RN Position: S RN Member Role: Primary Care Nurse Name: Jenny Pham RN Position: [facility] RN Member Role: Primary Care Nurse Name: Chelsi Fontanez RN Position: [facility] ED RN W/OE and Tasks Member Role: Primary Care Nurse Name: Denise Lopez RN Position: [facility] Remote Sensing Technician Member Role: Primary Care Nurse Name: Farzad Moseley RN Position: [facility] RN Member Role: Primary Care Nurse Name: Concetta Kingsley Position: Reference Physician Member Role: PCP Address: Address: [address] [place] [id number] Name: Vicky Hunter RN Position: [facility] RN Member Role: Primary Care Nurse Name: Josselyn Amezcua RN Position: [facility] RN Member Role: Primary Care Nurse Care Team Related Persons Name: YOVANY PRIETO Address: home [address] [place] [address] Name: LAMAR ARNOLD Address: home [address] [place] [address]
--- OUTSIDE RECORDS SUMMARY | 2023-08-20 10:01 | XMS_ITS | Continuity of Care Document ---
Author Name Unknown Organization [facility] Address [address] [place] [address]- Care Team Providers Care Trestleman Name Role Phone Concetta Kingsley Primary Care Physician [facility]23 - 06/15/23 [facility] [address] [place] [address] Allergies, Adverse Reactions, Alerts Substance Reaction Severity [...] 2 12/22/04 Gi aaron 1Result Comment: Lot #[id number] 2Result Comment: lot # [id number] Medications acetaminophen 325 mg oral tablet 650 mg, 2, tablet, By Mouth, Every 4 hours, Refills 0, Maintenance, 03/14/19 9:25:30 EDT Start Date: 03/14/19 Status: Ordered alendronate 70 mg oral tablet 1 tablet, By Mouth, Every week, OR MEDICATION OF THE DAY., # 12 tablet, 4 Refills, Maintenance, 01/26/23 11:51:00 EST, [facility] WBP, 155, cm, 02/27/23 8:51:00 EST, Height, 68.4, kg,09/15/22 9:47:00 EDT, [...] with spasticity, wheelchair-bound, edema of both lower hcdmclsoecc67-59 mmHg, 07/09/22 10:19:00 EDT, Supply Start Date: [...] Confirmed Active 1Problem added by Discern Expert Social History Social History Type Response Smoking Status Former smoker entered on: 08/26/17 Sex Patient Care team information Care Team Personnel Name: Rosa Patterson RN Position: [facility] RN Member Role: Primary Care Nurse Name: Karyna Alvarez RN Position: [facility] Office Staff Member Role: Primary Care Nurse Name: Diana Love RN Position: [facility] Nurse Member Role: Primary Care Nurse Name: Clive Diamond RN Position: [facility] RN Member Role: Primary Care Nurse Name: Balbina Ma RN Position: [facility] Nurse Member Role: Primary Care Nurse Name: Marija Maurer RN Position: [facility] RN Member Role: Primary Care Nurse Name: Dolores Johnson RN Position: [facility] Slick RN Member Role: Primary Care Nurse Name: Era Donis RN Position: [facility] RN Member Role: Primary Care Nurse Name: Tello Handy RN Position: [facility] RN Member Role: Primary Care Nurse Name: Jenny Pham RN Position: [facility] RN Member Role: Primary Care Nurse Name: Chelsi Fontanez RN Position: [facility] ED RN W/OE and Tasks Member Role: Primary Care Nurse Name: Denise Lopez RN Position: [facility] Hospital Career Development Coordinator Member Role: Primary Care Nurse Name: Farzad Moseley RN Position: [facility] RN Member Role: Primary Care Nurse Name: Concetta Kingsley Position: Reference Physician Member Role: PCP Address: Address: [address] [place] [id number]- Name: Vicky Hunter RN Position: [facility] RN Member Role: Primary Care Nurse Name: Josselyn Amezcua RN Position: [facility] RN Member Role: Primary Care Nurse Care Team Related Persons Name: GIORGINI, YOVANY Address: home [address] [place] [address] Name: LAMAR ARNOLD Address: home [address] [place] [address]
--- OUTSIDE RECORDS SUMMARY | 2023-08-20 10:01 | XMS_ITS | Continuity of Care Document ---
Author Name Unknown Organization [facility] Address [address] [place] [phone]- Care Team Providers Care Anvil Worker Name Role Phone Concetta Kingsley Primary Care Physician [facility]): 06/28/23 - 07/28/23 [facility] [address] [place] [id number] Allergies, Adverse Reactions, Alerts [...] 2 12/22/04 Gi aaron 1Result Comment: Lot #[id number] 2Result Comment: lot # [id number] Medications acetaminophen 325 mg oral tablet 650 [...] with spasticity, wheelchair-bound, edema of both lower yuwxrdvjdnw46-81 mmHg, 07/09/22 10:19:00 EDT, Supply Start Date: [...] Team Personnel Name: Rosa Patterson RN Position: [facility] RN Member Role: Primary Care Nurse Name: Karyna Alvarez RN Position: [facility] Office Staff Member Role: Primary Care Nurse Name: Diana Love RN Position: [facility] Nurse Member Role: Primary Care Nurse Name: Clive Diamond RN Position: [facility] RN Member Role: Primary Care Nurse Name: Balbina Ma RN Position: [facility] Nurse Member Role: Primary Care Nurse Name: Marija Maurer RN Position: [facility] RN Member Role: Primary Care Nurse Name: Dolores Johnson RN Position: [facility] Rad RN Member Role: Primary Care Nurse Name: Era Donis RN Position: [facility] RN Member Role: Primary Care Nurse Name: Tello Handy RN Position: [facility] ED RN W/OE and Tasks Member Role: Primary Care Nurse Name: Jenny Pham RN Position: [facility] RN Member Role: Primary Care Nurse Name: Chelsi Fontanez RN Position: [facility] ED RN W/OE and Tasks Member Role: Primary Care Nurse Name: Denise Lopez RN Position: [facility] Hospital Journeyman Millwright Member Role: Primary Care Nurse Name: Farzad Moseley RN Position: [facility] RN Member Role: Primary Care Nurse Name: Concetta Kingsley Position: Reference Physician Member Role: PCP Address: Address: [address] [place] [id number] Name: Vicky Hunter RN Position: [facility] RN Member Role: Primary Care Nurse Name: Josselyn Amezcua RN Position: [facility] RN Member Role: Primary Care Nurse Care Team Related Persons Name: YOVANY PRIETO Address: home [address] [place] [address] Name: LAMAR ARNOLD Address: [address] [place] [address]
--- OUTSIDE RECORDS SUMMARY | 2023-08-20 10:01 | XMS_ITS | Continuity of Care Document ---
Author Name Unknown Organization [facility] Address [address] [place] [id number]- Care Team Providers Care Product Development Carpenter Name Role Phone Concetta Kingsley Primary Care Physician ( [phone] [facility] 05/12/23 - 06/11/23 [facility] [address] [place] [id number] Allergies, Adverse Reactions, Alerts Substance Reaction Severity [...] 2 12/22/04 Gi aaron 1Result Comment: Lot #[id number] 2Result Comment: lot # [id number] Medications acetaminophen 325 mg oral tablet 650 [...] with spasticity, wheelchair-bound, edema of both lower fvxfeqghufx38-57 mmHg, 07/09/22 10:19:00 EDT, Supply Start Date: [...] Team Personnel Name: Rosa Patterson RN Position: [facility] RN Member Role: Primary Care Nurse Name: Karyna Alvarez RN Position: [facility] Office Staff Member Role: Primary Care Nurse Name: Diana Love RN Position: [facility] Nurse Member Role: Primary Care Nurse Name: Clive Diamond RN Position: [facility] RN Member Role: Primary Care Nurse Name: Balbina Ma RN Position: [facility] Nurse Member Role: Primary Care Nurse Name: Marija Maurer RN Position: [facility] RN Member Role: Primary Care Nurse Name: Dolores Johnson RN Position: [facility] Slick RN Member Role: Primary Care Nurse Name: Era Donis RN Position: [facility] RN Member Role: Primary Care Nurse Name: Tello Handy RN Position: [facility] RN Member Role: Primary Care Nurse Name: Jenny Pham RN Position: [facility] RN Member Role: Primary Care Nurse Name: Chelsi Fontanez RN Position: [facility] ED RN W/OE and Tasks Member Role: Primary Care Nurse Name: Denise Lopez RN Position: [facility] Hospital Butter Fat Tester Member Role: Primary Care Nurse Name: Farzad Moseley RN Position: [facility] RN Member Role: Primary Care Nurse Name: Concetta Kingsley Position: Reference Physician Member Role: PCP Address: Address: [address] [place] [id number]- Name: Vicky Hunter RN Position: [facility] RN Member Role: Primary Care Nurse Name: Josselyn Amezcua RN Position: [facility] RN Member Role: Primary Care Nurse Care Team Related Persons Name: GIORGINI, YOVANY Address: home [address] [place] [address] Name: LAMAR ARNOLD Address: home [address] [place] [address]
--- OUTSIDE RECORDS SUMMARY | 2023-08-20 10:03 | XMS_ITS | Continuity of Care Document ---
Author Name Unknown Organization [facility] Address [address] [place] [id number]- Care Team Providers Care Good Humor Vendor Name Role Phone Concetta Kingsley Primary Care Physician [facility] 05[facility]28[facility]23 - 06/27/23 [facility] [address] [place] [id number] Allergies, Adverse Reactions, Alerts Substance Reaction Severity [...] 2 12/22/04 Gi aaron 1Result Comment: Lot #[id number] 2Result Comment: lot # [id number] Medications acetaminophen 325 mg oral tablet 650 [...] with spasticity, wheelchair-bound, edema of both lower ieurqlgwhdd03-68 mmHg, 07/09/22 10:19:00 EDT, Supply Start Date: [...] Care Nurse Name: Karyna Alvarez RN Position: [facility] Office Staff Member Role: Primary Care Nurse Name: Diana Love RN Position: [facility] Nurse Member Role: Primary Care Nurse Name: Clive Diamond RN Position: [facility] RN Member Role: Primary Care Nurse Name: Balbina Ma RN Position: [facility] Nurse Member Role: Primary Care Nurse Name: Marija Maurer RN Position: [facility] RN Member Role: Primary Care Nurse Name: Dolores Johnson RN Position: [facility] Slick RN Member Role: Primary Care Nurse Name: Era Donis RN Position: [facility] RN Member Role: Primary Care Nurse Name: Tello Handy RN Position: [facility] RN Member Role: Primary Care Nurse Name: Jenny Pham RN Position: [facility] RN Member Role: Primary Care Nurse Name: Chelsi Fontanez RN Position: [facility] ED RN W/OE and Tasks Member Role: Primary Care Nurse Name: Denise Lopez RN Position: [facility] Hospital Crew Boat Operator Member Role: Primary Care Nurse Name: Farzad Moseley RN Position: [facility] RN Member Role: Primary Care Nurse Name: Concetta Kingsley Position: Reference Physician Member Role: PCP Address: Address: [address] [place] [id number]- Name: Vicky Hunter RN Position: [facility] RN Member Role: Primary Care Nurse Name: Josselyn Amezcua RN Position: [facility] RN Member Role: Primary Care Nurse Care Team Related Persons Name: YOVANY PRIETO Address: home [address] [place] [address] Name: LAMAR ARNOLD Address: home [address] [place] [address]
== END 2023-08-20 09:59 | disposition home or self-care (01) ==
LOC: HO.PMC 09:58
PROVIDERS: PCP Internal Medicine; Visit Provider Internal Medicine
DX: M25.569 Pain in unspecified knee (principal); M54.16 Radiculopathy, lumbar region; G03.9 Meningitis, unspecified
CPT/HCPCS: 99442

== ENCOUNTER → 2023-08-20 09:58 | Outpatient (BNVA) | payer MEDICARE, SELFPAY | PROVIDERS: PCP Internal Medicine; Visit Provider Internal Medicine ==

== ENCOUNTER 2023-10-18 09:59 | Outpatient (REF) | payer MEDICARE, SELFPAY ==
[2023-10-18 12:45] VITALS: BMI 26.4
[2023-10-18 12:46] VITALS: BP 109/56; PULSE 93; RESP 18; TEMP 35.8; O2SAT 97
== END 2023-10-18 10:00 | disposition home or self-care (01) ==
LOC: HO.MS 09:59
PROVIDERS: PCP Physician Assistant Medical; Visit Provider Ophthalmology
PROC: (CPT 66821; principal; 2023-10-18 11:50)
DX: H26.492 Other secondary cataract, left eye (principal)
CPT/HCPCS: 66821

== ENCOUNTER 2024-11-27 10:18 | Outpatient (AMB) | payer MEDICARE, SELFPAY ==
[2024-11-27 10:23] VITALS: BP 108/55; PULSE 78; RESP 15; O2SAT 97; BMI 25.5
--- NOTE | 2024-11-27 10:23 | MHC.OFFVIS ---
Vital Signs 11/27/24 10:23 Height 5 ft 1 in Weight 135 lb BMI 25.5 BP 108/55 L Blood Pressure Location Lt brachial Position Sitting Respiration 15 Pulse 78 Pulse Source Pulse Oximeter Pulse Oximetry (%) 97 Oxygen Delivery Method Room Air Intake Visit Reasons: Knee Pain Allergies Penicillins [PCN] Allergy (Severe, Verified 11/27/24 10:24) RASH erythromycin base [ERYTHROMYCIN BASE] Allergy (Intermediate, Verified 11/27/24 10:24) RASH amiodarone Adverse Reaction (Unknown, Verified 11/27/24 10:24) Unknown Medication List - Last Reconciled 11/27/24 by Bettina Padron LPN aspirin 81 mg PO DAILY atorvastatin 40 mg PO BEDTIME biotin 1,000 mcg PO DAILY calcium carbonate-vitamin D3 600 mg-2.5 mcg (100 unit) caps PO digoxin 125 mcg PO DAILY duloxetine 60 mg PO DAILY estradiol 0.01%(0.1mg/gram) 1 g vaginal 3XW furosemide (Lasix) 10 mg PO QAM gabapentin 600 mg PO BID lactulose (Constulose) 30 mL PO BID levothyroxine (Euthyrox) 175 mcg PO DAILY metoprolol succinate ER 50 mg PO DAILY multivitamin 1 tab PO DAILY omeprazole 20 mg PO DAILY HPI HPI Knee Pain: Details: 74-year-old female with chronic neuropathic pain of bilateral lower extremities presenting for follow-up. She describes her pain is most bothersome around her left knee area in the distal thigh and proximal tibial region. However it tends to wax and wane and move around. She also complains of pain in her right thigh and knee region. She previously had a temporary PNS device placed for left calf and foot pain which she responded to extremely well and that pain has since not come back. Pain today is described as aching stabbing sensation that comes and goes. Does not wake her from sleep; sometimes keeps her up. PFSH Medical History Osteoarthritis, knee Central pain syndrome Leg pain, bilateral Vertebral compression fracture Thoracic myelopathy Spasticity Seizure disorder SAH (subarachnoid hemorrhage) Osteoporosis Osteoarthritis Numbness of feet Neurogenic bladder Microscopic hematuria Major depression in partial remission Impaired fasting glucose Hypothyroidism Hypertension Hyperlipidemia History of colon polyps Epidural hematoma CVA (cerebral vascular accident) Cerebral microvascular disease Cardiomyopathy Atrial fibrillation Atherosclerosis of abdominal aorta Alcohol abuse Surgical History H/O maze procedure H/O of hysterectomy with bilateral oophorectomy Hx of cholecystectomy History of cataract surgery H/O heart valve replacement with mechanical valve Mitral valve replaced Physical Exam Vital Signs: Last Vital Signs Pulse 78 11/27/24 10:23 Resp 15 11/27/24 10:23 BP 108/55 L 11/27/24 10:23 Pulse Ox 97 11/27/24 10:23 Oxygen Delivery Method Room Air 11/27/24 10:23 BMI result Body Mass Index 25.5 Sitting comfortably in wheelchair. Tenderness to palpation in the left distal quadriceps tendon as well as patella and infrapatellar region. Assessment & Plan Assessment & Plan (1) Osteoarthritis, knee: Code(s): M17.10 - Unilateral primary osteoarthritis, unspecified knee Category: Medical (2) Leg pain, bilateral: Code(s): M79.604 - Pain in right leg; M79.605 - Pain in left leg Category: Medical (3) Chronic pain of left knee: Code(s): M25.562 - Pain in left knee; G89.29 - Other chronic pain Category: Medical Plan Patient has had bilateral neuropathic chronic leg pain in the past. She has responded extremely well to a trial of sciatic nerve stimulation on the left side. At this time her pain appears to be more concentrated around the left knee area, with somewhat less intensity of a similar nature on the right side. I think this is again a combination of both osteoarthritic as well as chronic neuropathic pain. She would benefit from a trial of left saphenous nerve stimulator placement. We will proceed with temporary left saphenous nerve stimulator placement followed by the right side 2 months later. Patient expressed understanding and is on board with the plan. Coding Level of Care Code Est Pt Level 4 (27176) Diagnoses Osteoarthritis, knee M17.10 Leg pain, bilateral M79.604; M79.605 Chronic pain of left knee M25.562; G89.29
== END 2024-11-27 10:45 | disposition home or self-care (01) ==
PROVIDERS: PCP Physician Assistant Medical; Visit Provider Internal Medicine
DX: M17.10 Unilateral primary osteoarthritis, unspecified knee (principal); M79.604 Pain in right leg; M79.605 Pain in left leg; M25.562 Pain in left knee; G89.29 Other chronic pain
CPT/HCPCS: 99214

== ENCOUNTER → 2024-11-27 10:18 | Outpatient (BNVA) | payer MEDICARE, SELFPAY | PROVIDERS: PCP Physician Assistant Medical; Visit Provider Internal Medicine | DX: M17.10 Unilateral primary osteoarthritis, unspecified knee (principal); M79.604 Pain in right leg; M79.605 Pain in left leg; M25.562 Pain in left knee; G89.29 Other chronic pain | CPT/HCPCS: 99212 ==

== ENCOUNTER 2024-12-14 06:22 | Outpatient (REF) | payer MEDICARE, SELFPAY | END 2024-12-14 06:23 | disposition home or self-care (01) | LOC: CF 06:22 | PROVIDERS: Visit Provider Internal Medicine | DX: M25.562 Pain in left knee (principal); G89.29 Other chronic pain | CPT/HCPCS: 64555; C1778; J2003 ==

== ENCOUNTER 2024-12-14 11:41 | Outpatient (AMB) | payer MEDICARE, SELFPAY ==
[2024-12-14 11:59] VITALS: BP 98/47; PULSE 90; O2SAT 96; BMI 25.5
--- NOTE | 2024-12-14 11:59 | A.OFFVIS_ITS ---
Vital Signs 12/14/24 11:59 Height 5 ft 1 in Weight 135 lb BMI 25.5 BP 98/47 L Blood Pressure Location Lt brachial Position Sitting Pulse 90 Pulse Source Pulse Oximeter Pulse Oximetry (%) 96 Oxygen Delivery Method Room Air Intake Visit Reasons: Left saphenous Sprint Corrosion Control Technician Required: No Allergies Penicillins [PCN] Allergy (Severe, Verified 12/14/24 12:00) RASH erythromycin base [ERYTHROMYCIN BASE] Allergy (Intermediate, Verified 12/14/24 12:00) RASH amiodarone Adverse Reaction (Unknown, Verified 12/14/24 12:00) Unknown Medication List - Last Reconciled 12/14/24 by Kayleen Cruz, SENIOR [employer]ALEGAL aspirin 81 mg PO DAILY atorvastatin 40 mg PO BEDTIME biotin 1,000 mcg PO DAILY calcium carbonate-vitamin D3 600 mg-2.5 mcg (100 unit) caps PO digoxin 125 mcg PO DAILY duloxetine 60 mg PO DAILY estradiol 0.01%(0.1mg/gram) 1 g vaginal 3XW furosemide (Lasix) 10 mg PO QAM gabapentin 600 mg PO BID lactulose (Constulose) 30 mL PO BID levothyroxine (Euthyrox) 175 mcg PO DAILY metoprolol succinate ER 50 mg PO DAILY multivitamin 1 tab PO DAILY omeprazole 20 mg PO DAILY HPI HPI Left saphenous Sprint: Details: Patient presents for scheduled procedure. Denies any recent cough, cold, infection, fever or other significant changes in medical history since last office visit. PFSH Medical History Osteoarthritis, knee Central pain syndrome Leg pain, bilateral Vertebral compression fracture Thoracic myelopathy Spasticity Seizure disorder SAH (subarachnoid hemorrhage) Osteoporosis Osteoarthritis Numbness of feet Neurogenic bladder Microscopic hematuria Major depression in partial remission Impaired fasting glucose Hypothyroidism Hypertension Hyperlipidemia History of colon polyps Epidural hematoma CVA (cerebral vascular accident) Cerebral microvascular disease Cardiomyopathy Atrial fibrillation Atherosclerosis of abdominal aorta Alcohol abuse Surgical History H/O maze procedure H/O of hysterectomy with bilateral oophorectomy Hx of cholecystectomy History of cataract surgery H/O heart valve replacement with mechanical valve Mitral valve replaced Physical Exam Vital Signs: Last Vital Signs Pulse 90 12/14/24 11:59 BP 98/47 L 12/14/24 11:59 Pulse Ox 96 12/14/24 11:59 Oxygen Delivery Method Room Air 12/14/24 11:59 BMI result Body Mass Index 25.5 Office Procedures Details: Peripheral Nerve Stimulation Temporary Lead Placement, Ultrasound-Guided, Saphenous Nerve, Left ? After the risks, benefits and alternatives were discussed with the patient and informed consentwas obtained, patient was placed in the supine position and padded to foster comfort. Appropriate skin and bony landmarks were identified, and pertinent vascular structures were located. The skin overlying the needle entry site was prepped and draped in sterile fashion. Ultrasound was used to identify the femoral artery, the femoral vein and the saphenous nerve. After identifying and marking the intended target along the course of the saphenous nerve, the skin around the planned entry point and the subcutaneous tissues were injected with local anesthetic. An introducer needle and stimulating probe were assembled, inserted and advanced along the intended course of the saphenous; nerve, taking care to maintain the proper depth of insertion as the introducer was advanced under ultrasound guidance. The introducer needle was delivered to a location in proximity to the nerve taking care not to puncture the femoral artery or the vein. Multiple stimulation parameters were used to deliver stimulation to the saphenous nerve in concert with stimulating at multiple positions around the nerve. Nerve target acquisition was confirmed noting generation of sensory and mild motor effects (paresthesia, muscle tension, etc) in the medial knee, leg and ankle; corresponding to the distribution of the saphenous nerve. Various electrical parameter combinations were tested, and the lead location was adjusted (physically relocated under ultrasound guidance) until the patient indicated medial knee paresthesia and tension overlapping the distribution of the patient?s typical region of pain. The stimulating probe was removed from the introducer and a percutaneous lead was guided through the needle and delivered to a location in similar proximity to the nerve. Final location was verified with electrical stimulation and documented. The introducer needle was removed, and the exposed end of the percutaneous lead was attached to an external stimulator unit. Various electrical parameter combinations were again tested until the patient indicated paresthesia and muscle tension overlapping the distribution of the patient?s typical region of pain. After confirming that lead impedance was in the normal range, the external unit was detached, the needle was removed, and the lead was anchored at the skin. The lead was threaded into the connector block and electrical continuity and desired patient response was confirmed. The connector block was attached to the external stimulator unit. The site was covered with a sterile occlusive dressing. A final ultrasound image was taken to document final placement. The patient was observed for stability of vital signs and comfort. Sprint PNS Device: Sprint PNS Device [id number] Percutaneous Peripheral Neuroelectrode Procedure: 02541 - Percutaneous Peripheral Neuroelectrode Procedure code (CPT) selection complete Office Meds lidocaine HCl 10 mg/mL (1 %) injection solution Performing Provider: Tony Pena MD Performing Location: [facility] Administered by: Bettina Padron LPN on 12/14/24 12:48 Dose Route Admin Location Dispensed Lot Number Expiration Date NDC [employer] 50 mg subcut 5 mL Assessment & Plan Assessment & Plan (1) Chronic pain of left knee: Code(s): M25.562 - Pain in left knee; G89.29 - Other chronic pain Category: Medical Plan Patient is status post temporary left saphenous nerve stimulator placement. Patient tolerated procedure well and was discharged home in stable condition with discharge instructions. All questions were answered. We will follow-up via telephone or in clinic to assess response to therapy. A follow-up appointment was made during today's visit. Orders: Orders US guide needle placement Today Osiris Mckenzie, [employer], OFFICE NURSE PRACTITIONER M17.10 - Unilateral primary osteoarthritis, unspecified knee AMB Sprint PNS Today Tony Pena MD G89.29 - Other chronic pain, M25.562 - Pain in left knee Coding Level of Care Code Procedure Only Diagnoses Chronic pain of left knee M25.562; G89.29 CPT Codes Sprint PNS - Sprint PNS Device: Sprint PNS Device ([id number]) Sprint PNS - SPRINT: 42971 - Percutaneous Peripheral Neuroelectrode ([id number]) Implantable Device Implantable Device Implantable Devices Qty [employer] Grinder Operator Implant Date Expiration Date Analgesic PENS system 1 SPR [employer] 12/14/24 07/06/26
--- OUTSIDE RECORDS SUMMARY | 2024-12-14 14:08 | XMS_ITS | Clinical Summary ---
Author Organization [facility] Address [address] [phone] Phone Care Team Providers Care Independent Jeweler Name Role Phone Bree Spencer OTONIEL Primary Care Provider [phone] Allergies Active Allergy Reactions Criticality Noted Date Comments Amiodarone 04/11/2024 Moxifloxacin 04/11/2024 Erythromycin GI intolerance 04/11/2024 Penicillins Anaphylaxis High 04/11/2024 Sulfa Antibiotics 04/11/2024 Tetracyclines & Related 04/11/2024 Medications atorvastatin (LIPITOR) 40 MG tablet Take 40 mg by mouth 1 (one) time each day Active digoxin (LANOXIN) 125 MCG tablet Take 125 mcg by mouth 1 (one) time each day Active DULoxetine (CYMBALTA) [address] capsule Take 60 mg by mouth 1 (one) time each day 03/26/2024 Active furosemide (LASIX) 20 MG tablet Take 20 mg by mouth 1 (one) time each day Active gabapentin (NEURONTIN) 600 MG tablet Take 600 mg by mouth 1 (one) time each day 02/22/2024 Active Jantoven 2 MG tablet Take 2 tablets by mouth 1 (one) time each day Active omeprazole (PriLOSEC) [address] capsule Take 20 mg by mouth 1 (one) time each day 01/20/2024 Active metoprolol succinate XL (TOPROL XL) 50 MG 24 hr tablet Take 50 mg by mouth 1 (one) time each day Active Euthyrox 175 MCG tablet Take 150 mcg by mouth 1 (one) time each day 01/31/2024 Active aspirin (ST OLIVIA) 81 MG EC tablet Take 81 mg by mouth 1 (one) time each day 10/19/2011 Active Biotin 1000 MCG chewable tablet Chew 1,000 mcg 1 (one) time each day Active Multiple Vitamin (multivitamin) tablet Take 1 tablet by mouth 1 (one) time each day Active Calcium Carb-Cholecalci ferol 600-12.5 MG-MCG capsule Take 1 capsule by mouth 1 (one) time each day Active Active Problems Problem Noted Date Diagnosed Date Chronic kidney disease stage 3B 04/11/2024 Hypertension 04/11/2024 History of mitral valve replacement 04/11/2024 Cerebrovascular accident 04/11/2024 Malignant neoplasm of uterus 04/11/2024 Recurrent urinary tract infection 04/11/2024 Urinary bladder stone 04/11/2024 Other retention of urine 04/11/2024 Cyst of kidney 04/11/2024 Neurogenic urinary bladder 04/11/2024 Atrial fibrillation 12/23/2021 Overview (04/11/2024): Last Assessment & Plan: Patient has chronic atrial fibrillation that is rate controlled and anticoagulated Resolved Problems Problem Noted Date Diagnosed Date Resolved Date Seizure disorder, not otherwise specified 04/11/2024 04/11/2024 Encounters Date Type Department Care Team Description 10/09/2024 11:00 AM EST Office Visit [facility] [address] [phone] Kiko Vidal MD Chronic kidney disease stage 3B (HCC) (Primary Dx); Cerebrovascular accident (HCC); Hypertension; Recurrent urinary tract infection; Urinary bladder stone from Last 3 Months Social History Tobacco Use Types Packs/Day Years Used Date Smoking Tobacco: Never Assessed Comments Unknown Sex and Gender Information Value Date Recorded Sex Assigned at Not on file Legal Sex Female 1:39 PM EST Gender Identity Not on file Sexual Orientation Not on file Last Filed Vital Signs Vital Sign Reading Time Taken Comments Blood Pressure 118/65 10/09/2024 11:00 AM EST Pulse 88 10/09/2024 11:00 AM EST Temperature - - Respiratory Rate - - Oxygen Saturation 97% 10/09/2024 11:00 AM EST Inhaled Oxygen Concentration - - Weight 59.4 kg (131 lb) 10/09/2024 11:00 AM EST Height 154.9 cm (5' 1 ) 10/09/2024 11:00 AM EST Body Mass Index 24.75 10/09/2024 11:00 AM EST Plan of Treatment Upcoming Encounters Date Type Department Care Team (Late st Contact Info) Description 04/11/2025 10:20 AM EDT Office Visit [facility] [address] [phone] Kiko Vidal MD [address] [phone] Health Maintenance Due Date Last Done Comments Breast Cancer Screening 1950 Colorectal Cancer Screening: Annual FOBT 2001 Colorectal Cancer Screening: Colonoscopy 2001 Colorectal Cancer Screening: Sigmoidoscopy 2001 Pneumococcal Vaccine: 65+ Years (3 of 3 - PCV) 12/05/2011 12/05/2010, 12/22/2004 Influenza Vaccine (#1) 2024 Hepatitis B Vaccine Aged Out No longe r eligible based on patient's age to complete this topic Insurance MEDICARE [facility] MEDICARE [facility] Care Teams Independent Jeweler Relationship Specialty Start Date End Date Bree Spencer FNP [address] [place] [id number] PCP - General 04/11/24
--- OUTSIDE RECORDS SUMMARY | 2024-12-14 14:08 | XMS_ITS | Clinical Summary ---
Author Organization [facility] Address [address] [place] [address] Care Team Providers Care Shredded Filler Hopper Feeder Name Role Phone Unavailable Primary Care Provider Unavailabl e Social History Tobacco Use Types Packs/Day Years Used Date Smoking Tobacco: Never Assessed Sex and Gender Information Value Date Recorded Sex Assigned at Not on file Gender Identity Not on file Sexual Orientation Not on file Plan of Treatment Health Maintenance Due Date Last Done Comments Hepatitis C Virus Screening 1950 DTaP/Tdap/Td Vaccines (1 - Tdap) 1971 Pneumococcal Vaccines 50+ (1 of 1 - PCV) 2002 Zoster (Shingles) Vaccine (1 of 2) 2002 COVID-19 Vaccine (2023-2 5 season) 2024 RSV Vaccine 60 years and old er and Patients (1 - 1-dose 75+ series) 2027 Hepatitis B Vaccines Aged Out No long er eligible based on patient's age to complete this topic
--- OUTSIDE RECORDS SUMMARY | 2024-12-14 14:08 | XMS_ITS | Clinical Summary ---
Author Organization [facility] it Address [address] [place] [address] Care Team Providers Care Tractor Engine Assembler Name Role Phone Brinda Haley MD Primary Care Provider [phone] Medications Medication Sig Dispensed Refills Start Date End Date Status lactulose (Constulose) solutionIndications:Con stipation, unspecified constipation type Take 30 mL (20 g total) by mouth 2 (two) times a day. 1800 mL 3 10/13/2024 04/11/2025 Active Social History Tobacco Use Types Packs/Day Years Used Date Smoking Tobacco: Former Smokeless Tobacco: Never Alcohol Use Standard Drinks/Week Comments Yes 0 (1 standard drink = 0.6 oz pur e alcohol) Sex and Gender Information Value Date Recorded Sex Assigned at Not on file Gender Identity Not on file Sexual Orientation Not on file Obstetrics History Last Filed Vital Signs Vital Sign Reading Time Taken Comments Blood Pressure 102/60 07/15/2022 2:19 PM EDT Sit ting L Arm Pulse 94 07/15/2022 2:19 PM EDT Temperature - - Respiratory Rate - - Oxygen Saturation - - Inhaled Oxygen Concentration - - Weight - - Height - - Body Mass Index - - Plan of Treatment Health Maintenance Due Date Last Done Comments Breast Cancer Screening 1950 DTaP,Tdap,and Td Vaccines (1 - Tdap) 1971 Zoster Vaccines (1 of 2) 2002 Pneumococcal Vaccine: 65+ Years (1 of 1 - PCV) 2017 Cholesterol Screening (Lipid Panel) 10/26/2022 Colorectal Cancer Screening: Colonoscopy 10/26/2022 Depression Screening 10/26/2022 Falls Risk Assessment 10/26/2022 Hepatitis C Screening 10/26/2022 Social Influencers of Health Screening 10/26/2022 COVID-19 Vaccine (1 - 2024-2 5 season) 2024 Influenza Vaccine (#1) 2024 2, 11/10/2021 RSV Immunization Patients 60 + Years Old (1 - 1-dose 75+ series) 2027 Osteoporosis Screening (Bone Density Screening) 06/21/2028 06/21/2018 HIB Vaccines Aged Out No longer eligi ble based on patient's age to complete this topic HPV Vaccines Aged Out No longer eligi ble based on patient's age to complete this topic Hepatitis A Vaccines Aged Out No long er eligible based on patient's age to complete this topic Hepatitis B Vaccines Aged Out No long er eligible based on patient's age to complete this topic IPV Vaccines Aged Out No longer eligi ble based on patient's age to complete this topic MMR Vaccines Aged Out No longer eligi ble based on patient's age to complete this topic Meningococcal ACWY Vaccine Aged Out N o longer eligible based on patient's age to complete this topic RSV Immunization Patients Under 20 months Aged Out No longer eligible b ased on patient's age to complete this topic Varicella Vaccines Aged Out No longer eligible based on patient's age to complete this topic Procedures Procedure Name Priority Date/Time Associated Diagnosis Comments [facility] DEXA AXIAL SKELETON Routine 06/21/2018 11:32 AM EDT Age-related osteoporosis without current pathological fracture from Last 3 Months or Most Recently Relevant to Health Maintenance Results * [facility] DEXA AXIAL SKELETON (06/21/2018 11:32 AM EDT) Anatomical Region Laterality Modality Mammography 06/21/2018 9:57 AM EDT Narrative 06/21/2018 11:32 AM EDT [facility] Diagnostic Imaging Department [address] [place] [address] Patient: ??RADHA ARNOLD ?/Age/Sex: 1950 - 67 - F Unit#: ??[id number] ? Location/Status: ??SPDIMAM/REG CLI ? Mnemonic/Ordering Site: ??MAMDEXAAX/SPMAM Ordering Physician: ??MARYSOL Kee MD Teresita Dexa Axial Skeleton - 06/21/18 - 1018 HISTORY: ??The patient is a 67-year-old postmenopausal female with clinical concern for metabolic bone disease. FINDINGS: ??Dual energy x-ray absorptiometry of the lumbar spine and femurs is performed. The mean bone mineral density at L1-L4 is 1.026 gm/cm2 which is 87% of that of young normals and 107% of that of age matched controls. This yields a T-score of -1.3 and a Z-score of 0.6 which is diagnostic of osteopenia. The mean bone mineral density of the femurs bilaterally is 0.733 gm/cm2 which is 73% of that of young normals and 88% of that of age matched controls. ??This yields a T-score of -2.2 and a Z-score of -0.8 which is diagnostic of osteopenia. However, the T-score of the right femoral neck is -2.6 and that of the left femoral neck is -2.7 which is diagnostic of osteoporosis. IMPRESSION: 1. Osteoporosis. 2. FRAX analysis yields a 10-year probability of major osteoporotic fracture of 22.9% and a 10-year probability of hip fracture of 5.5%. Code 45220 Dictating Physician: ??LANDON TUTTLE MD Electronically Signed by: ??LANDON TUTTLE MD Dic Date/Time: ??06/21/18 1131 Sign date/Time: ??06/21/18 1132 Procedure Note Landon Tuttle MD - 11/10/2022 [facility] Diagnostic Imaging Department [address] [place] [id number] Patient: RADHA ARNOLD Yaima Govea./Age/Sex: 1950 - 67 - F Unit#: [id number] Location/Status: SPDIMAM/REG CLI Mnemonic/Ordering Site: [facility] Ordering Physician: MARYSOL Kee MD Teresita Dexa Axial Skeleton - 06/21/18 - 1018 HISTORY: The patient is a 67-year-old postmenopausal female withclinical concern for metabolic bone disease. FINDINGS: Dual energy x-ray absorptiometry of the lumbar spine and femursis performed. The mean bone mineral density at L1-L4 is 1.026 gm/cm2 which is87% of that of young normals and 107% of that of age matched controls. Thisyields a T-score of -1.3 and a Z-score of 0.6 which is diagnostic of osteopenia. The mean bone mineral density of the femurs bilaterally is 0.733 gm/qg7khigu is 73% of that of young normals and 88% of that of age matched controls.This yields a T-score of -2.2 and a Z-score of -0.8 which is diagnostic of osteopenia. However, the T-score of the right femoral neck is -2.6 andthat of the left femoral neck is -2.7 which is diagnostic of osteoporosis. IMPRESSION: 1. Osteoporosis. 2. FRAX analysis yields a 10-year probability of major osteoporoticfracture of 22.9% and a 10-year probability of hip fracture of 5.5%. Code 02590 Dictating Physician: LANDON TUTTLE MD Electronically Signed by: LANDON TUTTLE MD Dic Date/Time: 06/21/18 1131 Sign date/Time: 06/21/18 1132 Marysol Kee MD IMG BI PROCEDURES from Last 3 Months or Most Recently Relevant to Health Maintenance Advance Directives Documents on File Type Date Recorded Patient Cellular Plastics Cutter Expl anation Health Care Decision (hx) 08/06/2022 AD PRICE DIRECTIVE Health Care Decision (hx) 08/06/2022 AD PRICE DIRECTIVE Health Care Decision (hx) 08/06/2022 AD PRICE DIRECTIVE Health Care Decision (hx) 08/06/2022 AD PRIEC DIRECTIVE Health Care Decision (hx) 08/06/2022 AD PRICE DIRECTIVE Health Care Decision (hx) 08/06/2022 AD PRICE DIRECTIVE Health Care Decision (hx) 08/06/2022 AD PRICE DIRECTIVE Health Care Decision (hx) 08/06/2022 AD PRICE DIRECTIVE Health Care Decision (hx) 08/06/2022 AD PRICE DIRECTIVE Health Care Decision (hx) 08/06/2022 AD PRICE DIRECTIVE Health Care Decision (hx) 08/06/2022 AD PRICE DIRECTIVE Health Care Decision (hx) 08/06/2022 AD PRICE DIRECTIVE Health Care Decision (hx) 10/08/2020 AD PRICE DIRECTIVE Health Care Decision (hx) 09/20/2020 AD PRICE DIRECTIVE Health Care Decision (hx) 07/14/2020 AD PRICE DIRECTIVE Health Care Decision (hx) 07/14/2020 AD PRICE DIRECTIVE Health Care Decision (hx) 07/14/2020 AD PRICE DIRECTIVE Health Care Decision (hx) 07/14/2020 AD PRICE DIRECTIVE Health Care Decision (hx) 07/14/2020 AD PRICE DIRECTIVE Health Care Decision (hx) 06/06/2016 AD PRICE DIRECTIVE Health Care Decision (hx) 06/06/2016 AD PRICE DIRECTIVE Health Care Decision (hx) 06/06/2016 AD PRICE DIRECTIVE Health Care Decision (hx) 06/06/2016 AD PRICE DIRECTIVE Health Care Decision (hx) 06/06/2016 AD PRICE DIRECTIVE Health Care Decision (hx) 06/06/2016 AD PRICE DIRECTIVE Health Care Decision (hx) 06/06/2016 AD PRICE DIRECTIVE Health Care Decision (hx) 06/06/2016 AD PRICE DIRECTIVE Health Care Decision (hx) 06/06/2016 AD PRICE DIRECTIVE Health Care Decision (hx) 06/06/2016 AD PRICE DIRECTIVE Health Care Decision (hx) 06/06/2016 AD PRICE DIRECTIVE Health Care Decision (hx) 06/06/2016 AD PRICE DIRECTIVE Health Care Decision (hx) 06/06/2016 AD PRICE DIRECTIVE Health Care Decision (hx) 06/06/2016 AD PRICE DIRECTIVE Care Teams Tractor Engine Assembler Relationship Specialty Start Date End Date Brinda Haley MD PCP - General Internal Medicine 04/10/21
--- OUTSIDE RECORDS SUMMARY | 2024-12-14 14:08 | XMS_ITS | Clinical Summary ---
Author Organization [facility] Address [address] [place] [address] Care Team Providers Care Instructional Material Director Name Role Phone Brinda Haley MD Primary Care Provider [phone] Social History Tobacco Use Types Packs/Day Years Used Date Smoking Tobacco: Never Assessed Sex and Gender Information Value Date Recorded Sex Assigned at Not on file Gender Identity Not on file Sexual Orientation Not on file Plan of Treatment Health Maintenance Due Date Last Done Comments Hepatitis C Screening 1950 COVID-19 Vaccine (#1) 04/11/1953 Depression Screening 1964 Preventative Health Evaluation 1970 DTap / Tdap / Td (1 - Tdap) 1971 Colon Cancer Screening (Colonoscopy) 1997 Breast Cancer Screening (Mammogram) 2002 Shingrix-Zoster Vaccine (1 of 2) 2002 Fall Risk Assessment 2017 Osteoporosis Screening (DEXA Scan) 2017 Pneumococcal Vaccine (1 of 1 - PCV) 2017 Influenza Vaccine (#1) 2024 RSV Adult > 60+ Yrs or Pregn ant (1 - 1-dose 75+ series) 2027 Hepatitis B Vaccines Aged Out No long er eligible based on patient's age to complete this topic RSV Ped < 20 months Aged Out No longe r eligible based on patient's age to complete this topic Care Teams Instructional Material Director Relationship Specialty Start Date End Date Brinda Haley MD [address] [place] [address] PCP - General Internal Medicine 04/10/21
--- OUTSIDE RECORDS SUMMARY | 2024-12-14 14:08 | XMS_ITS | Clinical Summary ---
Author Organization [facility] Address [address] [place] [address] Care Team Providers Care Resource Economist Name Role Phone Unavailable Primary Care Provider Unavailabl e Social History Tobacco Use Types Packs/Day Years Used Date Smoking Tobacco: Never Assessed Comments Unknown Sex and Gender Information Value Date Recorded Sex Assigned at Not on file Legal Sex Female 6:41 PM EDT Gender Identity Not on file Sexual Orientation Not on file Plan of Treatment Health Maintenance Due Date Last Done Comments Hepatitis C Screening 1950 DTaP/Tdap/Td (1 - Tdap) 1970 Mammogram/Breast Imaging 1992 Pneumococcal 50+ years (1 of 1 - PCV) 2002 Zoster (Shingrix) (1 of 2) 2002 Bone Density 2017 COVID-19 Vaccine ( - 2023-2 5 season) 2024 Influenza (#1) 2024 RSV (1 - 1-dose 75+ series) 2027 HPV Vaccine Aged Out No longer eligi ble based on patient's age to complete this topic Hep A Aged Out No longer eligi ble based on patient's age to complete this topic Hep B Aged Out No longer eligi ble based on patient's age to complete this topic Hib Aged Out No longer eligi ble based on patient's age to complete this topic Meningococcal ACWY Aged Out No longer eligible based on patient's age to complete this topic Pap Smear Discontinued Zoster (Zostavax) Discontinued
== END 2024-12-14 13:11 | disposition home or self-care (01) ==
LOC: HO.PMCPRC 11:41
PROVIDERS: PCP Physician Assistant Medical; Visit Provider Internal Medicine
DX: M25.562 Pain in left knee (principal); G89.29 Other chronic pain
CPT/HCPCS: 64555

== ENCOUNTER 2024-12-20 10:48 | Outpatient (AMB) | payer MEDICARE, SELFPAY ==
[2024-12-20 10:51] VITALS: BP 108/58; PULSE 90; RESP 16; O2SAT 92; BMI 25.5
--- NOTE | 2024-12-20 10:51 | MHC.OFFVIS ---
Vital Signs 12/20/24 10:51 Height 5 ft 1 in Weight 135 lb BMI 25.5 BP 108/58 L Blood Pressure Location Lt brachial Position Sitting Respiration 16 Pulse 90 Pulse Source Pulse Oximeter Pulse Oximetry (%) 92 Oxygen Delivery Method Room Air Intake Visit Reasons: s/p left saphenous Sprint Legal Billing Analyst Required: No Allergies Penicillins [PCN] Allergy (Severe, Verified 12/20/24 10:52) RASH erythromycin base [ERYTHROMYCIN BASE] Allergy (Intermediate, Verified 12/20/24 10:52) RASH amiodarone Adverse Reaction (Unknown, Verified 12/20/24 10:52) Unknown Medication List - Last Reconciled 12/20/24 by Bettina Padron LPN aspirin 81 mg PO DAILY atorvastatin 40 mg PO BEDTIME biotin 1,000 mcg PO DAILY calcium carbonate-vitamin D3 600 mg-2.5 mcg (100 unit) caps PO digoxin 125 mcg PO DAILY duloxetine 60 mg PO DAILY estradiol 0.01%(0.1mg/gram) 1 g vaginal 3XW furosemide (Lasix) 10 mg PO QAM gabapentin 600 mg PO BID lactulose (Constulose) 30 mL PO BID levothyroxine (Euthyrox) 175 mcg PO DAILY metoprolol succinate ER 50 mg PO DAILY multivitamin 1 tab PO DAILY omeprazole 20 mg PO DAILY HPI HPI s/p left saphenous Sprint: Details: History of Present Illness The patient is a 74-year-old female presenting with left lower extremity pain following the recent placement of a nerve stimulator. The nerve stimulator was implanted to alleviate chronic left knee and leg pain. Initially, post-procedural pain was reported but resolved within a few days. However, the patient began experiencing intermittent pain around and below the knee, which appeared after the implantation. This pain, described as a spraining and muscle-aching sensation, inhibited the patient's ability to perform exercises and walk with a walker. Lowering the stimulator's intensity and turning it off temporarily did not significantly reduce the pain. Pain Description - Onset and Timing: Pain began after nerve stimulator placement; intermittent occurrence. - Quality and Character: Sprain- and muscle ache-like pain, tingly sensation; at times felt like a muscle spasm. - Primary Location: Left knee, extending below the knee. - Radiation: There was no mentioned radiation to other areas. - Exacerbating Factors: Increased stimulator intensity. - Relieving Factors: None specifically successful; turning the stimulator off did not effectively alleviate pain. - Interference with Activities: Prevents performing exercises and walking with a walker. Physical Exam - Skin- Lead insertion site clean. - Stability- Joint intact. - Device- Nerve stimulator observed to be securely in place. Results Pain Management - Affect: Pain intermittently impacts functionality but not usual psychological wellbeing. - Analgesia: No specific analgesics mentioned; management with nerve stimulator. Adjustments to stimulator intensity being trialed. - Adverse Effects: Overstimulation symptoms impacting activity. - Activities of Daily Living: Limited exercise and walking capacity due to pain. - Aberrant Drug Related Behaviors: No aberrant drug behaviors reported. PFSH Medical History Osteoarthritis, knee Central pain syndrome Leg pain, bilateral Vertebral compression fracture Thoracic myelopathy Spasticity Seizure disorder SAH (subarachnoid hemorrhage) Osteoporosis Osteoarthritis Numbness of feet Neurogenic bladder Microscopic hematuria Major depression in partial remission Impaired fasting glucose Hypothyroidism Hypertension Hyperlipidemia History of colon polyps Epidural hematoma CVA (cerebral vascular accident) Cerebral microvascular disease Cardiomyopathy Atrial fibrillation Atherosclerosis of abdominal aorta Alcohol abuse Surgical History H/O maze procedure H/O of hysterectomy with bilateral oophorectomy Hx of cholecystectomy History of cataract surgery H/O heart valve replacement with mechanical valve Mitral valve replaced Physical Exam Vital Signs: Last Vital Signs Pulse 90 12/20/24 10:51 Resp 16 12/20/24 10:51 BP 108/58 L 12/20/24 10:51 Pulse Ox 92 12/20/24 10:51 Oxygen Delivery Method Room Air 12/20/24 10:51 BMI result Body Mass Index 25.5 Assessment & Plan Assessment & Plan (1) Chronic pain of left knee: Code(s): M25.562 - Pain in left knee; G89.29 - Other chronic pain Category: Medical Plan Plan - Adjust nerve stimulator: Reduced amplitude to maintain stimulation without causing overstimulation. Start low intensity and slowly increase every two weeks based on symptom improvement rather than perceptual stimulation. - Device reassessment: Check lock mechanism and request a replacement from the supplier if needed. - Symptom monitoring: Continue monitoring for any new or persisting pain symptoms or sensations. - Patient follow-up: Schedule a return appointment in seven weeks for reassessment. Patient was informed and verbally consented to the use of an ambient scribe for clinic note documentation during this visit. Discussion Notes I discussed the possibility of overstimulation leading to post-implantation pain in the left leg and knee. We considered potentially adjusting nerve stimulator intensity to a lower level to avoid overstimulation and evaluated the lock's effectiveness, concluding that a replacement may be necessary. The patient was informed about the need for a gradual increase towards effective stimulation without cerebral perception being necessary for therapeutic effects. Lastly, we discussed the lack of bruising or symptoms of a hematoma, ruling out additional concerns regarding bleeding at the implant site. Patient Instructions - Keep the stimulator at a lower intensity as advised. - Monitor pain symptoms and any instances of tingling or unusual sensations. - Request a new lock for the stimulator from the supplier if not securely functioning. - Follow up in seven weeks or sooner if pain worsens. Coding Level of Care Code Est Pt Level 3 (40069) Diagnoses Chronic pain of left knee M25.562; G89.29
--- OUTSIDE RECORDS SUMMARY | 2024-12-20 12:56 | XMS_ITS | Clinical Summary ---
Author Organization [facility] Address [address] [address] Phone Care Team Providers Care Route Specialist Name Role Phone Bree Spencer OTONIEL Primary Care Provider [phone] Allergies Active Allergy Reactions Criticality Noted Date [...] Office Visit [facility] [address] [address] Kiko Vidal MD Chronic kidney disease stage [...] Office Visit [facility] [address] [phone] Kiko Vidal MD [address] [phone] Health Maintenance Due Date Last Done Comments Breast Cancer Screening 1950 Colorectal Cancer Screening: Annual FOBT 2001 Colorectal Cancer Screening: Colonoscopy 2001 Colorectal Cancer Screening: Sigmoidoscopy 2001 Pneumococcal Vaccine: 65+ Years (3 of 3 - PCV) 12/05/2011 12/05/2010, 12/22/2004 Influenza Vaccine (#1) 2024 Hepatitis B Vaccine Aged Out No longe r eligible based on patient's age to complete this topic Insurance [facility] Care Teams Route Specialist Relationship Specialty Start Date End Date Bree Spencer FNP [address] [place] [id number] PCP - General 04/11/24
--- OUTSIDE RECORDS SUMMARY | 2024-12-20 12:56 | XMS_ITS | Clinical Summary ---
Author Organization [facility] Address [address] [place] [address] Care Team Providers Care Welt Slasher Name Role Phone Brinda Haley MD Primary Care Provider [phone] Social History Tobacco Use Types Packs/Day Years [...] age to complete this topic Care Teams Welt Slasher Relationship Specialty Start Date End Date Brinda Haley MD [address] [place] [address] PCP - General Internal Medicine 04/10/21
--- OUTSIDE RECORDS SUMMARY | 2024-12-20 12:56 | XMS_ITS | Clinical Summary ---
Author Organization [facility] it Address [address] [place] [address] Care Team Providers Care Crop Farmers Name Role Phone Brinda Haley MD Primary Care Provider [phone] Medications Medication Sig Dispensed Refills Start Date [...] Procedure Name Priority Date/Time Associated Diagnosis Comments [facility] DEX[facility] AXIAL SKELETON Routine 06/21/2018 11:32 AM EDT Age-related osteoporosis without current pathological fracture from Last 3 Months or Most Recently Relevant to Health Maintenance Results * [facility] DEXA AXIAL SKELETON (06/21/2018 11:32 AM EDT) Anatomical Region Laterality Modality Mammography 06/21/2018 9:57 AM EDT Narrative 06/21/2018 11:32 AM EDT [facility] Diagnostic Imaging Department [address] [place] [address] Patient: ??RADHA ARNOLD ?/Age/Sex: 1950 - 67 - F Unit#: ??[id number] ? Location/Status: ??SPDIMAM/REG CLI ? Mnemonic/Ordering Site: [...] probability of hip fracture of 5.5%. Code 49640 Dictating Physician: ??LANDON TUTTLE MD Electronically Signed by: ??LANDON TUTTLE MD Dic Date/Time: ??06/21/18 1131 Sign date/Time: ??06/21/18 1132 Procedure Note Landon Tuttle MD - 11/10/2022 [facility] Diagnostic Imaging Department [address] [place] [address] Patient: RADHA ARNOLD Yaima Govea./Age/Sex: 1950 - 67 - F Unit#: [id number] Location/Status: SPDIMAM/REG CLI [facility] Ordering Physician: MARYSOL Kee MD Teresita Dexa [...] density of the femurs bilaterally is 0.733 gm/vf4obkwp is 73% of that of young normals [...] probability of hip fracture of 5.5%. Code 13110 Dictating Physician: LANDON TUTTLE MD Electronically Signed by: LANDON TUTTLE MD Dic Date/Time: 06/21/18 1131 Sign date/Time: 06/21/18 1132 Marysol Kee MD IMG BI PROCEDURES from Last 3 Months or Most Recently Relevant to Health Maintenance Advance Directives Documents on File Type Date Recorded Patient Ditcher Operator Expl anation Health Care Decision (hx) 08/06/2022 [...] (hx) 06/06/2016 AD PRICE DIRECTIVE Care Teams Crop Farmers Relationship Specialty Start Date End Date Brinda Haley MD PCP - General Internal Medicine 04/10/21
--- OUTSIDE RECORDS SUMMARY | 2024-12-20 12:56 | XMS_ITS | Clinical Summary ---
Author Organization [facility] Address [address] [place] [address] Care Team Providers Care Forcer Maker Name Role Phone Unavailable Primary Care Provider [...]
--- OUTSIDE RECORDS SUMMARY | 2024-12-20 12:56 | XMS_ITS | Clinical Summary ---
Author Organization [facility] Address [address] [place] [address] Care Team Providers Care Oil Program Compliance Specialist Name Role Phone Unavailable Primary Care Provider [...]
== END 2024-12-20 11:10 | disposition home or self-care (01) ==
PROVIDERS: PCP Physician Assistant Medical; Visit Provider Internal Medicine
DX: M25.562 Pain in left knee (principal); G89.29 Other chronic pain
CPT/HCPCS: 99024

== ENCOUNTER → 2024-12-20 10:48 | Outpatient (BNVA) | payer MEDICARE, SELFPAY | PROVIDERS: PCP Physician Assistant Medical; Visit Provider Internal Medicine | DX: M25.562 Pain in left knee (principal); G89.29 Other chronic pain; Z96.82 Presence of neurostimulator | CPT/HCPCS: 99212 ==

== ENCOUNTER 2025-02-07 11:06 | Outpatient (AMB) | payer MEDICARE, SELFPAY ==
--- NOTE | 2025-02-07 11:11 | A.OFFVIS_ITS ---
Vital Signs 02/07/25 11:12 Height 5 ft 1 in Weight 135 lb BMI 25.5 BP 101/58 L Blood Pressure Location Lt brachial Position Sitting Respiration 16 Pulse 69 Pulse Source Pulse Oximeter Pulse Oximetry (%) 99 Oxygen Delivery Method Room Air Intake Visit Reasons: Sprint removal Right Of Way Supervisor Required: No Allergies Penicillins [PCN] Allergy (Severe, Verified 02/07/25 11:14) RASH erythromycin base [ERYTHROMYCIN BASE] Allergy (Intermediate, Verified 02/07/25 11:14) RASH amiodarone Adverse Reaction (Unknown, Verified 02/07/25 11:14) Unknown Medication List - Last Reconciled 02/07/25 by Bettina Padron LPN aspirin 81 mg PO DAILY atorvastatin 40 mg PO BEDTIME biotin 1,000 mcg PO DAILY calcium carbonate-vitamin D3 600 mg-2.5 mcg (100 unit) caps PO digoxin 125 mcg PO DAILY duloxetine 60 mg PO DAILY estradiol 0.01%(0.1mg/gram) 1 g vaginal 3XW furosemide (Lasix) 10 mg PO QAM gabapentin 600 mg PO BID lactulose (Constulose) 30 mL PO BID levothyroxine (Euthyrox) 175 mcg PO DAILY metoprolol succinate ER 50 mg PO DAILY multivitamin 1 tab PO DAILY omeprazole 20 mg PO DAILY HPI HPI Sprint removal: Details: History of Present Illness The patient is a 74-year-old female presenting with chronic bilateral knee pain associated with osteoarthritis. She reports a history of pain exacerbations, including a notable increase in pain on January 10 and , primarily affecting her knees and right foot. A further significant increase in her pain was documented on February 02, described as severe in the afternoon, with pain localized to both knees and the left leg. Despite attempts with a specific pain relief device, there was no perceived reduction in discomfort. The patient's pain remains consistent with daily activities, unaffected by rest. She has not tried cortisone injections but is considering further imaging for comprehensive evaluation. Pain Description - Onset: Chronic pain with noted exacerbation dates - Quality: Constant, severe exacerbations on specific dates - Primary Location: Bilateral knees - Radiating: Occasional involvement of the right foot and left leg - Exacerbating Factors: None identified; pain reported as constant and unaffected by weight-bearing - Relieving Factors: No effective relief noted - Interference: Affects daily activities due to persistent, severe pain Physical Exam - Appears afebrile. - Alert and oriented. - Mood and affect appropriate. - Follows and participates in conversation appropriately. - Respiratory effort is unlabored. - Sitting in wheelchair. Results - Tests: Previous MRI findings suggested subcutaneous edema; recommendation for standing x-rays of both knees Pain Management - Affect: Continual discomfort affecting overall quality of life noted - Analgesia: No current effective analgesia identified; consideration for cortisone or gel injections - Adverse Effects: None discussed - Activities of Daily Living: Pain has been impacting her capacity for normal activities - Aberrant Drug Behaviors: None reported or observed [facility] Medical History Osteoarthritis, knee Central pain syndrome Leg pain, bilateral Vertebral compression fracture Thoracic myelopathy Spasticity Seizure disorder SAH (subarachnoid hemorrhage) Osteoporosis Osteoarthritis Numbness of feet Neurogenic bladder Microscopic hematuria Major depression in partial remission Impaired fasting glucose Hypothyroidism Hypertension Hyperlipidemia History of colon polyps Epidural hematoma CVA (cerebral vascular accident) Cerebral microvascular disease Cardiomyopathy Atrial fibrillation Atherosclerosis of abdominal aorta Alcohol abuse Surgical History H/O maze procedure H/O of hysterectomy with bilateral oophorectomy Hx of cholecystectomy History of cataract surgery H/O heart valve replacement with mechanical valve Mitral valve replaced Physical Exam Vital Signs: Last Vital Signs Pulse 69 02/07/25 11:12 Resp 16 02/07/25 11:12 BP 101/58 L 02/07/25 11:12 Pulse Ox 99 02/07/25 11:12 Oxygen Delivery Method Room Air 02/07/25 11:12 BMI result Body Mass Index 25.5 Assessment & Plan Assessment & Plan (1) Chronic pain of left knee: Code(s): M25.562 - Pain in left knee; G89.29 - Other chronic pain Category: Medical Plan Plan We discussed the use of cortisone injections to manage the patient's chronic bilateral knee pain associated with osteoarthritis. Standing x-rays of the knees were ordered to further assess the current status of her joint structures. Should cortisone not provide sufficient relief, gel injections will be considered. Discussions centered around the low risks involved with these procedures, and the need for close monitoring to adjust her treatment plan accordingly. Patient was informed and verbally consented to the use of an ambient scribe for clinic note documentation during this visit. Discussion Notes I discussed with the patient the benefits and potential risks of cortisone injec tions for her bilateral knee pain. We reviewed alternative interventions such as gel injections should cortisone fail to offer relief. The patient was informed of the minor risks involved, such as bleeding into the joint, and agreed to the diagnostic standing x-rays of her knees. We further discussed the importance of evaluating her response to these interventions to enhance her overall quality of life. Patient Instructions - Undergo standing x-ray of both knees as ordered - Consider cortisone injection after a few days as discussed - Monitor any changes in pain or new symptoms and report them - Maintain regular weight-bearing activities as tolerated - Follow up as scheduled for potential gel injections if necessary Orders: Orders XR knee standing BI 02/07/25 M25.562 - Pain in left knee, G89.29 - Other chronic pain Coding Level of Care Code Est Pt Level 4 (21597) Diagnoses Chronic pain of left knee M25.562; G89.29
[2025-02-07 11:12] VITALS: BP 101/58; PULSE 69; RESP 16; O2SAT 99; BMI 25.5
== END 2025-02-07 11:30 | disposition home or self-care (01) ==
LOC: HO.PMC 11:07
PROVIDERS: PCP Physician Assistant Medical; Visit Provider Internal Medicine
DX: M25.562 Pain in left knee (principal); G89.29 Other chronic pain
CPT/HCPCS: 99214

== ENCOUNTER 2025-02-07 11:06 | Outpatient (REF) | payer MEDICARE, SELFPAY ==
--- NOTE | ~2025-02-07 | XR_ITS ---
EXAMINATION: XR KNEE AP STANDING CLINICAL INFORMATION: M25.562 - Pain in left knee COMPARISON: None available. TECHNIQUE: Single AP view standing position. FINDINGS: Limited single view demonstrated asymmetric joint space narrowing involving mostly the lateral compartment of the right knee and the medial compartment of the left knee. Probable old traumatic deformity in the proximal diaphysis of the left fibula. No acute cortical disruption or gross malalignment. XR/XR knee standing BI IMPRESSION: Moderate lateral compartment osteoarthrosis, right knee. Moderate medial compartment osteoarthrosis, left knee. Electronically signed by: Geovany Greco MD 02/08/2025 08:32 AM EDT
== END 2025-02-07 11:07 | disposition home or self-care (01) ==
LOC: HO.XRAY 11:06
PROVIDERS: PCP Physician Assistant Medical; Visit Provider Internal Medicine
DX: M25.562 Pain in left knee (principal); M25.561 Pain in right knee; G89.29 Other chronic pain; M17.0 Bilateral primary osteoarthritis of knee
CPT/HCPCS: 73565; 99212

== ENCOUNTER → 2025-02-07 11:37 | Outpatient (BNV) | payer MEDICARE, SELFPAY | PROVIDERS: PCP Physician Assistant Medical; Visit Provider Radiology Diagnostic Radiology | DX: M25.562 Pain in left knee (principal) | CPT/HCPCS: 73565 ==

== ENCOUNTER 2025-03-26 09:59 | Outpatient (AMB) | payer MEDICARE, SELFPAY ==
--- NOTE | 2025-03-26 10:01 | MHC.OFFVIS ---
Vital Signs 03/26/25 10:03 Height 5 ft 1 in Weight 135 lb BMI 25.5 BP 108/57 L Blood Pressure Location Lt brachial Position Sitting Respiration 16 Pulse 81 Pulse Source Pulse Oximeter Pulse Oximetry (%) 98 Oxygen Delivery Method Room Air Intake Visit Reasons: FU to discuss having cortisone shot [employer] Laborer Required: No Allergies Penicillins [PCN] Allergy (Severe, Verified 03/26/25 10:04) RASH erythromycin base [ERYTHROMYCIN BASE] Allergy (Intermediate, Verified 03/26/25 10:04) RASH amiodarone Adverse Reaction (Unknown, Verified 03/26/25 10:04) Unknown Medication List - Last Reconciled 03/26/25 by Bettina Padron LPN aspirin 81 mg PO DAILY atorvastatin 40 mg PO BEDTIME biotin 1,000 mcg PO DAILY calcium carbonate-vitamin D3 600 mg-2.5 mcg (100 unit) caps PO digoxin 125 mcg PO DAILY duloxetine 60 mg PO DAILY estradiol 0.01%(0.1mg/gram) 1 g vaginal 3XW furosemide (Lasix) 10 mg PO QAM gabapentin 600 mg PO BID 90 days lactulose (Constulose) 30 mL PO BID levothyroxine (Euthyrox) 175 mcg PO DAILY metoprolol succinate ER 50 mg PO DAILY multivitamin 1 tab PO DAILY omeprazole 20 mg PO DAILY HPI HPI FU to discuss having cortisone shot: Details: History of Present Illness The patient is a 74-year-old female presenting with pain management concerns, including neuropathic pain, knee pain, and foot pain. Initiated on gabapentin in April 2023, the patient previously experienced foot pain as well as intermittent knee and back pain. Her notes recent improvements with fewer episodes of knee pain, prompting a deferment of knee injection therapy. She has a history of utilizing gabapentin for her pain management, reporting current management satisfactory with this regimen. Pain Description - Onset and Timing: Foot pain occurred last month, lasting approximately one week. - Quality and Character: Intermittent, significant pain episodes affecting foot, knees, and back. - Primary Location: Pain noted in both feet, knees, and back. - Areas of Radiation: Pain primarily localized without specified radiation. - Exacerbating Factors: No specific exacerbating factors identified. - Relieving Factors: Gabapentin has been utilized for management with noted improvement. - Interference: Intermittent episodes interfere with comfort, but recent management is effective. Physical Exam - Appears afebrile. - Alert and oriented. - Mood and affect appropriate. - Follows and participates in conversation appropriately. - Sitting comfortably in wheelchair. Results - x-ray showing [id number] knee arthritis Pain Management - Affect: Pain episodes impact comfort when they occur; currently stabilized. - Analgesia: Gabapentin utilized; pain episodes less frequent, current dosing 600mg at night and 300mg in morning if reduction desired. - Adverse Effects: Evaluating possible reduction to mitigate any adverse effect. - Activities of Daily Living: Improved function with current pain management strategy. - Aberrant Drug Related Behaviors: No indications of misuse or aberrant behaviors. PFSH Medical History Osteoarthritis, knee Central pain syndrome Leg pain, bilateral Vertebral compression fracture Thoracic myelopathy Spasticity Seizure disorder SAH (subarachnoid hemorrhage) Osteoporosis Osteoarthritis Numbness of feet Neurogenic bladder Microscopic hematuria Major depression in partial remission Impaired fasting glucose Hypothyroidism Hypertension Hyperlipidemia History of colon polyps Epidural hematoma CVA (cerebral vascular accident) Cerebral microvascular disease Cardiomyopathy Atrial fibrillation Atherosclerosis of abdominal aorta Alcohol abuse Surgical History H/O maze procedure H/O of hysterectomy with bilateral oophorectomy Hx of cholecystectomy History of cataract surgery H/O heart valve replacement with mechanical valve Mitral valve replaced Physical Exam Vital Signs: Last Vital Signs Pulse 81 03/26/25 10:03 Resp 16 03/26/25 10:03 BP 108/57 L 03/26/25 10:03 Pulse Ox 98 03/26/25 10:03 Oxygen Delivery Method Room Air 03/26/25 10:03 BMI result Body Mass Index 25.5 Assessment & Plan Assessment & Plan (1) Chronic pain of left knee: Code(s): M25.562 - Pain in left knee; G89.29 - Other chronic pain Category: Medical Plan Plan - Adjust gabapentin dosing as discussed. - Defer knee injection until symptoms indicate necessity. - Maintain communication for symptom updates. - Encourage patient to report any increase in pain symptoms promptly. Patient was informed and verbally consented to the use of an ambient scribe for clinic note documentation during this visit. Discussion Notes I discussed with the patient and her the current pain management plan, emphasizing the option to adjust gabapentin dosage to assess for potential side effects. I recommended deferring knee injections as the patient's knee pain is presently under control. We reviewed the signs of increasing knee or foot pain that would prompt reconsideration of intervention, ensuring they are aware of the follow-up protocol. I detailed the benefits and risks of modifying gabapentin dosing and reiterated the plan to maintain a pain control strategy that optimizes her daily function. Patient Instructions - Continue current gabapentin dosage. - Consider reducing morning dose to 300mg if side effects are present. - Monitor pain levels and function closely. - Contact us for an appointment if pain increases significantly. - Adhere to follow-up recommendations as discussed. Coding Level of Care Code Est Pt Level 3 (82051) Diagnoses Chronic pain of left knee M25.562; G89.29
[2025-03-26 10:03] VITALS: BP 108/57; PULSE 81; RESP 16; O2SAT 98; BMI 25.5
--- OUTSIDE RECORDS SUMMARY | 2025-03-26 11:16 | XMS_ITS | Clinical Summary ---
Author Organization [facility] Address [address] [place] [address] Care Team Providers Care Bleach Boiler Filler Name Role Phone Unavailable Primary Care Provider Unavailabl e Encounters Date Type Department Care Team Description 02/08/2025 Orders Only [facility] [address] [place] [address] Pain Management, Scan 01/10/2025 Scanned Document [facility] [address] [place] [address] Pain Management, Scan from Last 3 Months Social History Tobacco Use Types Packs/Day Years Used Date Smoking Tobacco: Never Assessed Comments Unknown Sex and Gender Information Value Date Recorded Sex Assigned at Not on file Legal Sex Female 7:32 AM EDT Gender Identity Not on file Sexual Orientation Not on file Plan of Treatment Health Maintenance Due Date Last Done Comments Hepatitis C Virus Screening 1950 DTaP/Tdap/Td Vaccines (1 - Tdap) 1971 Pneumococcal Vaccines 50+ (1 of 1 - PCV) 2002 Zoster (Shingles) Vaccine (1 of 2) 2002 COVID-19 Vaccine ( - 2023-2 5 season) 2024 RSV Vaccine 60 years and old er and Patients (1 - 1-dose 75+ series) 2027 Hepatitis B Vaccines Aged Out No long er eligible based on patient's age to complete this topic Procedures Procedure Name Priority Date/Time Associated Diagnosis Comments XRAY EXTERNAL RESULT Routine 02/07/2025 10:07 AM EDT from Last 3 Months Results * X-Ray External Result (02/07/2025 10:07 AM EDT) Anatomical Region Laterality Modality Computed Radiogr aphy us Scan Pain Management [facility] DI[facility]NOST[facility] DALIA SMALL Edited Result - Final from Last 3 Months
--- OUTSIDE RECORDS SUMMARY | 2025-03-26 11:16 | XMS_ITS | Clinical Summary ---
Author Organization [facility] Address [address] [place] [address] Care Team Providers Care Information Specialist Name Role Phone Unavailable Primary Care [...] ( - 2023-2 5 season) 2024 Influenza (Season Ended) 2025 RSV (1 - 1-dose 75+ series) 2027 [...]
--- OUTSIDE RECORDS SUMMARY | 2025-03-26 11:16 | XMS_ITS | Clinical Summary ---
Author Organization [facility] Address [address] [address] Phone Care Team Providers Care Mess Cook Name Role Phone Bree Spencer OTONIEL Primary Care Provider [phone] Allergies Active Allergy Reactions Criticality Noted Date [...] Encounters Date Type Department Care Team Description 03/14/2025 Orders Only [facility] [address] [address] Kiko Vidal MD from Last 3 Months Social History Tobacco [...] Care Team (Late st Contact Info) Description 04/08/2025 Orders Only [facility] [address] [phone] Kiko Vidal MD [address] [address] Chronic kidney disease stage 3B (HCC); Cerebrovascular accident (HCC); Hypertension; Recurrent urinary tract infection; Urinary bladder stone 04/11/2025 10:20 AM EDT Office Visit [facility] [address] [phone] Kiko Vidal MD [address] [address] Health Maintenance Due Date Last Done Comments Breast Cancer Screening 1950 Colorectal Cancer Screening: Annual FOBT 2001 Colorectal Cancer Screening: Colonoscopy 2001 Colorectal Cancer Screening: Sigmoidoscopy 2001 Pneumococcal Vaccine: 50+ Years (3 of 3 - PCV) 12/05/2011 12/05/2010, 12/22/2004 Influenza Vaccine (Season Ended) 2025 Hepatitis B Vaccine Aged Out No longe r eligible based on patient's age to complete this topic Procedures Procedure Name Priority Date/Time Associated Diagnosis Comments PROTEIN / CREATININE RATIO, URINE Routine 03/14/2025 3:46 PM EDT PTH, INTACT Routine 03/13/2025 10:38 AM EDT MAGNESIUM Routine 03/13/2025 10:38 AM EDT PHOSPHATE ( PHOSPHORUS) Routine 03/13/2025 10:38 AM EDT URIC ACID Routine 03/13/2025 10:38 AM EDT VITAMIN D 25 HYDROXY Routine 03/13/2025 10:38 AM EDT COMPREHENSIVE METABOLIC PANEL Routine 03/13/2025 10:38 AM EDT CBC AND DIFFERENTIAL Routine 03/13/2025 10:38 AM EDT from Last 3 Months Results * (ABNORMAL) Protein, Total, Random Urine w/Creatinine (Protein/Creat Ratio) (03/14/2025 3:46 PM EDT) Creatinine, Ur 98.0 Not Estab. mg/dL [facility] Protein, Ur 62.2 Not Estab. mg/dL [facility] Urine Protein/Creati nine Ratio 635(H) 0 - 200 mg/g creat [facility] 03/14/2025 3:46 PM EDT 03/14/2025 us Kiko Vidal MD LAB URINE ORDERABLES Final Re sult [facility] [address] [place] [address] * Vitamin D 25 Hydroxy (03/13/2025 10:38 AM EDT) Vitamin D, 25-OH, Total 85.2 30.0 - 100.0 ng/mL [facility] Comment: Vitamin D deficiency has been defined by the [place] of Medicine and an Endocrine Society practice guideline as a level of serum 25-OH vitamin D less than 20 ng/mL (1,2). The Endocrine Society went on to further define vitamin D insufficiency as a level between 21 and 29 ng/mL (2). 1. IOM ([place] of [employer]). 2010. Dietary reference ?? intakes for calcium and D. [place]: The ?? National [employer] Press. 2. [place] MF, Bonnie [place], Nic EAGLE, et al. ?? Evaluation, treatment, and prevention of vitamin D ?? deficiency: an Endocrine Society clinical practice ?? guideline. JCEM. 2010; 96(7):1911-30. 03/13/2025 10:3 8 AM EDT 03/13/2025 us Kiko Vidal MD LAB BLOOD ORDERABLES Final Re sult [facility] [address] [place] [address] * CBC and Differential (03/13/2025 10:38 AM EDT) WBC 5.7 3.4 - 10.8 x10E3/uL [facility] RBC 4.34 3.77 - 5.28 x10E6/uL [facility] Hemoglobin 12.5 11.1 - 15.9 g/dL [facility] Hematocrit 38.5 34.0 - 46.6 % [facility] MCV 89 79 - 97 fL [facility] MCH 28.8 26.6 - 33.0 pg [facility] MCHC 32.5 31.5 - 35.7 g/dL [facility] RDW 13.2 11.7 - 15.4 % [facility] Platelets 198 150 - 450 x10E3/uL [facility] Neutrophils Relative 63 Not Estab. % [facility] Lymphocytes Relative 23 Not Estab. % [facility] Monocytes 12 Not Estab. % [facility] Eosinophils Relative 1 Not Estab. % [facility] Basophils Relative 1 Not Estab. % [facility] Neutrophils Absolute 3.7 1.4 - 7.0 x10E3/uL [facility] Lymphocytes Absolute 1.3 0.7 - 3.1 x10E3/uL [facility] Monocytes Absolute 0.7 0.1 - 0.9 x10E3/uL [facility] Eosinophils Absolute 0.1 0.0 - 0.4 x10E3/uL [facility] Basophils Absolute 0.0 0.0 - 0.2 x10E3/uL [facility] Immature Granulocytes 0 Not Estab. % [facility] Immature Grans (Absolute) 0.0 0.0 - 0.1 x10E3/uL [facility] 03/13/2025 10:3 8 AM EDT 03/13/2025 Kiko Vidal MD LAB BLOOD ORDERABLES Final Re sult Performing Organization Address City/[facility]/ZIP Co de Phone Number [facility] [address] [place] [address] * (ABNORMAL) Uric Acid (03/13/2025 10:38 AM EDT) Pathologist [facility] Uric Acid 8.4(H) 3.1 - 7.9 mg/dL [facility] Comment:Therapeutic target f or gout patients: <6.0 03/13/2025 10:3 8 AM EDT 03/13/2025 Kiko Vidal MD LAB BLOOD ORDERABLES Final Re sult [facility] [address] [place] [address] * Phosphorus (03/13/2025 10:38 AM EDT) Phosphorus 3.8 3.0 - 4.3 mg/dL [facility] 03/13/2025 10:3 8 AM EDT 03/13/2025 Kiko Vidal MD LAB BLOOD ORDERABLES [facility] [address] [place] [address] * PTH, Intact (03/13/2025 10:38 AM EDT) Pathologist [facility] PTH 45 15 - 65 pg/mL [facility] 03/13/2025 10:3 8 AM EDT 03/13/2025 Kiko Vidal MD LAB BLOOD ORDERABLES Final Re sult Performing Organization Address City/[facility]/ZIP Co de Phone Number [facility] [address] [place] [address] * Magnesium (03/13/2025 10:38 AM EDT) Pathologist [facility] Magnesium 2.0 1.6 - 2.3 mg/dL [facility] 03/13/2025 10:3 8 AM EDT 03/13/2025 Kiko Vidal MD LAB BLOOD ORDERABLES Final Re sult [facility] [address] [place] [address] * (ABNORMAL) Comprehensive Metabolic Panel (03/13/2025 10:38 AM EDT) Pathologist [facility] Glucose 93 70 - 99 mg/dL [facility] BUN 22 8 - 27 mg/dL [facility] Creatinine 1.20(H) 0.57 - 1.00 mg/dL [facility] eGFR CKD-EPI CR 2020 48(L) >59 mL/min/1.7 3 [facility] BUN/Creatinine Ratio 18 12 - 28 [facility] Sodium 144 134 - 144 mmol/L [facility] Potassium 4.2 3.5 - 5.2 mmol/L [facility] Chloride 104 96 - 106 mmol/L [facility] Bicarbonate (CO2) 20 20 - 29 mmol/L [facility] Calcium 8.9 8.7 - 10.3 mg/dL [facility] Total Protein 6.7 6.0 - 8.5 g/dL [facility] Albumin 4.1 3.8 - 4.8 g/dL [facility] Globulin 2.6 1.5 - 4.5 g/dL [facility] Total Bilirubin <0.2 0.0 - 1.2 mg/dL [facility] Alkaline Phosphatase 62 44 - 121 IU/L [facility] AST (SGOT) 32 0 - 40 IU/L [facility] ALT (SGPT) 23 0 - 32 IU/L [facility] 03/13/2025 10:3 8 AM EDT 03/13/2025 us Kiko Vidal MD LAB BLOOD ORDERABLES Final [facility] [address] [place] [address] from Last 3 Months Insurance Medicare [facility] Medicare [facility] Care Teams Mess Cook Relationship Specialty Start Date End Date Bree Spencer FNP [address] [place] [address] PCP - General 04/11/24
--- OUTSIDE RECORDS SUMMARY | 2025-03-26 11:16 | XMS_ITS | Encounter Summary ---
Author Organization [facility] Address [address] [place] [address] Care Team Providers Care Frame Nailer Name Role Phone Unavailable Primary Care Provider Unavailabl e Encounter Details Date Type Department Care Team (Late st Contact Info) Description 12/22/2024 Scanned Document [facility] [address] [place] [address] Pain Management, Scan Social History Tobacco Use Types Packs/Day Years Used Date Smoking Tobacco: Never Assessed Comments Unknown Sex and Gender Information Value Date Recorded Sex Assigned at Not on file Legal Sex Female 7:32 AM EDT Gender Identity Not on file Sexual Orientation Not on file documented as of this encounter Plan of Treatment Not on file documented as of this encounter Visit Diagnoses Not on filedocumented in this encounter
--- OUTSIDE RECORDS SUMMARY | 2025-03-26 11:16 | XMS_ITS | Clinical Summary ---
Author Organization [facility] Address [address] [place] [address] Care Team Providers Care Field Cashier Name Role Phone Brinda Haley MD Primary Care Provider [phone] Social History Tobacco Use Types Packs/Day Years [...] age to complete this topic Care Teams Field Cashier Relationship Specialty Start Date End Date Brinda Haley MD [address] [place] [address] PCP - General Internal Medicine 04/10/21
--- OUTSIDE RECORDS SUMMARY | 2025-03-26 11:16 | XMS_ITS | Data Portability ---
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 Pt's provides history given pt's aphasia and difficulty with word finding. reports a 3 week hx of intermittent confusion, increased weakness, difficulty with pt following directions and saying her own name. He states he has spoken with the PCP over the last 3 weeks. After sx were present for 1 week without improvement pt went to [facility] ER and was evaluated, no acute findings were noted. is worried about a UTI, he states that pt's urine is malodorus and the confusion is consistent with UTI's in the past. Pt is straight cathed TID to help with issues with urinary retention. Exam: Pt is A/Ox2, aphasic at baseline, VSS, HRR, resp reg and unlabored on RA, lungs CTA bilat. CN I-XII WNL, equal smile, slight right sided weakness which is bbaseline, no pronator drift noted, abd is soft, non-tender, non-distended, +BSx4 no CVA tenderness. DDx considered, but not limited to: UTI: likely given sx and UA pos for LEUK and NIT Peylo: unlikely, pt non-toxic appearing, no CVA tenderness Sepsis: unlikely, VSS, pt is non-toxic appearing CVA: unlikely sx are intermittent and present for 3 weeks, sx are unchanged since eval in ER 2 weeks ago. Work up/Results: UA: pos LEUK and NIT Urine cx: pending Plan/Discussion: Pt started on keflex for UTI, urine sent for cx to determine bacterial sensitivity given pt is routinely straight cathed. Advised on s/s of keflex and to take with food to prevent GI upset. Patients PCP contacted and updated on patient status. Patient verbalized understanding of discharge instructions and when to follow up with PCP/911/ED as needed. Patient in agreement with current plan and treatment. Time On Scene with Patient: 01:02:41 [email or web address] Not available 04/24/2021 16:07:06 Plan of Treatment Reminders Order Date Submit Date Provider Last Modified By Organization Details Last Modified Time Details Appointments None recorded. Lab urinalysi s, dipstick 2020 021 michaela [facility], [address] [place] [address], [id number], 14:22:20 culture, urine 2020 021 LUDWIN [facility] (Centralized Electronic Ordering - All Locations), Patient Can Go To The Location Of Their Choice, [id number] 09:43:56 Referral None recorded. Procedures None recorded. Surgeries None recorded. Imaging None recorded. Medication Orders cephalexi n 500 mg capsule 2020 021 michaela [id number], [address] [place], [address], 16:55:50 Patient TargetsNo targets recorded. Patient Instructions Encounter Date Encounter Id Patient Instructions Last Modified By Organization Details Last Modified Time 04/24/2021 [id number] You were diagnos ed with a urinary tract infection today. Please take all antibiotics for the entire duration of the prescription. Most urinary tract infections can be treated successfully with the initial antibiotic choice. Occasionally, the bacteria in the urine is resistant to the first antibiotic. In those cases, you will require a different antibiotic. If you do not feel like you are improving or you develop fever, back pain or vomiting, please contact your physician immediately. Please note urine culture specimens can take up to four days for processing. If we receive results sooner, we will call you. If you develop any new or worsening symptoms and need after hours care, please go to nearest ER and/or call 911. If you have additional concerns or develop a change in your condition between 8am-10pm, please call [facility] at [phone] to help navigate your care. [email or web address] Not available 04/24/2021 14:22:16 Reason for Referral None Reported. Results Created Date Observation Date Name Description Value Unit Range Abnormal Flag Note LastModifiedBy Organization Detail LastModifiedTime 04/24/20 21 04/24/2021 urina lysis , dipst ick Appearance cloudy Not Available Spr - [facility] [address], [place], [address], 04/24/2021 14:20:28 04/24/20 21 04/24/2021 urina lysis , dipst ick Color light yellow Not Available Spr - Home [address] [place], [address], 04/24/2021 14:20:28 04/24/20 21 04/24/2021 urina lysis , dipst ick Glucose negati ve Not Available Spr - Home [address] [place], [address], 04/24/2021 14:20:28 04/24/20 21 04/24/2021 urina lysis , dipst ick Bilirubin negati ve Not Available Spr - Home [address] [place], [address], 04/24/2021 14:20:28 04/24/2004/24/2021 urina lysis , dipst ick Ketones NEG Not Available Spr - Home [address] [place], [address], 04/24/2021 14:20:28 04/24/2004/24/2021 urina lysis , dipst ick Sp. [place] 1.015 Not Available Spr - Home [address] [place], [address], 04/24/2021 14:20:28 04/24/20 21 04/24/2021 urina lysis , dipst ick Blood +++ Not Available Spr - Home [address] [place], [address], 04/24/2021 14:20:28 04/24/20 21 04/24/2021 urina lysis , dipst ick pH 5 Not Available Spr - Home [address] [place], [address], 04/24/2021 14:20:28 04/24/20 21 04/24/2021 urina lysis , dipst ick Protein positi ve Not Available Spr - Home [address] [place], [address], 04/24/2021 14:20:28 04/24/20 21 04/24/2021 urina lysis , dipst ick Urobilirubin positi ve Not Available Spr - Home [address] [place], [address], 04/24/2021 14:20:28 04/24/20 21 04/24/2021 urina lysis , dipst ick Nitrites + Not Available Spr - [facility] [address] [place], [address], 04/24/2021 14:20:28 04/24/20 21 04/24/2021 urina lysis , dipst ick Leukocytes +++ Not Available Spr - [facility], [place], [address], 04/24/2021 14:20:28 04/24/20 21 04/25/2021 cultu re, urine specimen description URINE Not Available [facility] ([facility] Order[facility] - All Locations) Patient Can Go To The Location Of Their Choice, [id number] 04/27/2021 09:43:56 04/24/2004/25/2021 cultu re, urine special requests NONE Not Available [facility] ([facility] Ordering - All Locations) Patient Can Go To The Location Of Their Choice, [id number] 04/27/2021 09:43:56 04/24/2004/27/2021 cultu re, urine culture >100,0 00 COL/ML ESCHER ICHIA COLI abnormal Not Available [facility] (Centralized Electronic Ordering - All Locations) Patient Can Go To The Location Of Their Choice, 04/27/2021 09:43:56 04/24/2004/27/2021 cultu re, urine report status FINAL 2020 Not Available [facility] (Centralized Electronic Ordering - All Locations) Patient Can Go To The Location Of Their Choice, 04/27/2021 09:43:56 04/24/2004/27/2021 cultu re, urine organism ORGANI SM >100,0 00 COL/ML ESCHER ICHIA COLI Not Available [facility] (Centralized Electronic Ordering - All Locations) Patient Can Go To The Location Of Their Choice, 04/27/2021 09:43:56 04/24/2004/27/2021 cultu re, urine method METHOD MIN. INHIB. CONC. (MCG/M L) Not Available [facility] (Centralized Electronic Ordering - All Locations) Patient Can Go To The Location Of Their Choice, 04/27/2021 09:43:56 04/24/2004/27/2021 cultu re, urine ampicillin AMPICI LLIN SUSCEP TIBLE susceptib le Not Available [facility] (Centralized Electronic Ordering - All Locations) Patient Can Go To The Location Of Their Choice, 04/27/2021 09:43:56 04/24/2004/27/2021 cultu re, urine ampicillin/s ulbactam AMPICI LLIN/S ULBACT AM SUSCEP TIBLE susceptib le Not Available [facility] (Centralized Electronic Ordering - All Locations) Patient Can Go To The Location Of Their Choice, 04/27/2021 09:43:56 04/24/2004/27/2021 cultu re, urine amoxicillin/ clavulanic acid AMOXIC ILLIN/ CLAVUL AN SUSCEP TIBLE susceptib le Not Available [facility] (Centralized Electronic Ordering - All Locations) Patient Can Go To The Location Of Their Choice, 04/27/2021 09:43:56 04/24/2004/27/2021 cultu re, urine cefazolin CEFAZO DUGLAS SUSCEP TIBLE susceptib le Not Available [facility] (Centralized Electronic Ordering - All Locations) Patient Can Go To The Location Of Their Choice, 04/27/2021 09:43:56 04/24/2004/27/2021 cultu re, urine cefepime CEFEPI ME SUSCEP TIBLE susceptib le Not Available [facility] (Centralized Electronic Ordering - All Locations) Patient Can Go To The Location Of Their Choice, 04/27/2021 09:43:56 04/24/2004/27/2021 cultu re, urine ceftriaxone CEFTRI AXONE SUSCEP TIBLE susceptib le Not Available [facility] (Centralized Electronic Ordering - All Locations) Patient Can Go To The Location Of Their Choice, 04/27/2021 09:43:56 04/24/2004/27/2021 cultu re, urine ciprofloxaci n CIPROF LOXACI N RESIST ANT resistant Not Available [facility] (Centralized Electronic Ordering - All Locations) Patient Can Go To The Location Of Their Choice, 04/27/2021 09:43:56 04/24/2004/27/2021 cultu re, urine ertapenem ERTAPE NEM SUSCEP TIBLE susceptib le Not Available [facility] (Centralized Electronic Ordering - All Locations) Patient Can Go To The Location Of Their Choice, 04/27/2021 09:43:56 04/24/2004/27/2021 cultu re, urine gentamicin GENTAM ICIN SUSCEP TIBLE susceptib le Not Available [facility] (Centralized Electronic Ordering - All Locations) Patient Can Go To The Location Of Their Choice, 04/27/2021 09:43:56 04/24/2004/27/2021 cultu re, urine levofloxacin LEVOFL OXACIN RESIST ANT resistant Not Available [facility] (Centralized Electronic Ordering - All Locations) Patient Can Go To The Location Of Their Choice, 04/27/2021 09:43:56 04/24/2004/27/2021 cultu re, urine meropenem MEROPE NEM SUSCEP TIBLE susceptib le Not Available [facility] (Centralized Electronic Ordering - All Locations) Patient Can Go To The Location Of Their Choice, 04/27/2021 09:43:56 04/24/2004/27/2021 cultu re, urine nitrofuranto in NITROF URANTO IN SUSCEP TIBLE susceptib le Not Available [facility] (Centralized Electronic Ordering - All Locations) Patient Can Go To The Location Of Their Choice, 04/27/2021 09:43:56 04/24/2004/27/2021 cultu re, urine piperacillin /tazobactam PIPERA CILLIN /TAZOB AC SUSCEP TIBLE susceptib le Not Available [facility] (Centralized Electronic Ordering - All Locations) Patient Can Go To The Location Of Their Choice, 04/27/2021 09:43:56 04/24/2004/27/2021 cultu re, urine trimeth/sulf amethox TRIMET H/SULF AMETHO X SUSCEP TIBLE susceptib le Not Available [facility] (Centralized Electronic Ordering - All Locations) Patient Can Go To The Location Of Their Choice, 04/27/2021 09:43:56 04/24/2004/27/2021 cultu re, urine tetracycline TETRAC YCLINE SUSCEP TIBLE susceptib le Not Available [facility] (Centralized Electronic Ordering - All Locations) Patient Can Go To The Location Of Their Choice, 04/27/2021 09:43:56 Result Notes None recorded. Procedures Surgical History Date Name Laterality Status Provider Name and Address Organization Details Recorded Time Straight Cath - DH completed DAVID ANAYA NP [address] [place], [address], [place] [facility] 04/24/2021 16:01:31 Imaging Results None recorded. Procedure Notes None recorded. Medical Equipment None Reported. Allergies Allergen ID Allergen Name Allergen Category Reaction Reaction Severity Criticality Documentation Date Start Date Code Code System Note Provider Name and Address Organization Details Recorded Time 19920229 Product containin g penicilli n (product) medicatio n Not available Not available Not available 04/24/2021 27675 8001 SNOMED DAVID ANAYA NP [address] [place], [address], [place] [facility] 13:35:33 amiodaron e medicatio n Not available Not available Not available 04/24/2021 703 RxNorm DAVID ANAYA NP [address] [place], [address], [place] - [facility] 13:35:42 Medications Name Sig Start Date Stop Date Status Note LastModified by Organization Details LastModified Time atorvastati n 40 mg tablet active Not Available Not Available Not Available levothyroxi ne 137 mcg tablet active Not Available Not Available Not Available acetaminoph en 325 mg tablet TK 1 TO 2 TS PO Q 4 H PRF MILD PAIN active Not Available Not Available No t Available clindamycin HCl 300 mg capsule TAKE 2 CAPSULES BY MOUTH ONCE 1 HOUR BEFORE PROCEDURE 04/24 completed Not Available Not Available Not Available metoprolol succinate ER 50 mg tablet,exte nded release 24 hr active Not Available Not Available Not Available levetiracet am 500 mg tablet active Not Available Not Available Not Available sulfamethox azole 800 mg-trimetho prim 160 mg tablet TAKE ONE TABLET BY MOUTH TWICE A DAY WITH GLASS OF WATER 04/24 completed Not Available Not Available Not Available baclofen 20 mg tablet TAKE 1 TABLET BY MOUTH TWICE A DAY WITH FOOD OR MILK. 04/24 completed Not Available Not Available Not Available hydromorpho ne 2 mg tablet TK 1 T PO BID. TK 1 T PO Q 4 HOURS PRF PAIN 04/24 completed Not Available Not Available Not Available baclofen 10 mg tablet active Not Available Not Available No t Available cephalexin 500 mg capsule TAKE ONE CAPSULE BY MOUTH THREE TIMES A DAY FOR 7 DAYS active Not Available Not Available No t Available pantoprazol e 40 mg tablet,mello yed release TK 1 T PO QD 04/24 completed Not Available Not Available Not Available digoxin 125 mcg (0.125 mg) tablet active Not Available Not Available N ot Available furosemide 20 mg tablet active Not Available Not Available Not Available gabapentin 100 mg capsule TAKE 2 TO 3 CAPSULES BY MOUTH THREE TIMES A DAY active Not Available Not Available No t Available Jantoven 2 mg tablet active Not Available Not Available No t Available mirtazapine 7.5 mg tablet TK 1 T PO QD HS 04/24 completed Not Available Not Available Not Available nitrofurant oin monohydrate /macrocryst als 100 mg capsule TAKE ONE CAPSULE BY MOUTH EVERY 12 HOURS FOR 7 DAYS 04/24 completed Not Available Not Available Not Available trospium 20 mg tablet 04/24 completed Not Available Not Available Not Available duloxetine 60 mg capsule,del ayed release active Not Available Not Available Not Available solifenacin 10 mg tablet active Not Available Not Available Not Available digoxin active Not Available Not Avail able Not Available Asprin Ec Low Dose active Not Available Not Available Not Available Botox 200 unit injection 04/24 completed Not Available Not Available Not Available Vitals Date Recorded Respiratory rate Body temperature Heart rate Oxygen saturation Oxygen saturation in Arterial blood by Pulse oximetry Systolic blood pressure Diastolic blood pressure Provider Name and Address Organization Details Last Updated DateTime 20 /min 97.1 [degF] 62 /min 97 % 97 % 118 mm[Hg] 72 mm[Hg] Not Available [facility] 13:38:43 Social History Question Answer Notes LastModified by Organizat ion Details LastModified Time Tobacco Smoking Status Former Smoker DAVID ANAYA, [employer] [address], [place], [address], [place] [facility] 04/24/2021 13:38:44 Do You Have An Advance Directive? Yes Information not available 04/24/2021 What Is Your Code Status? Full Code Information not available 04/24/2021 Within The Past 12 Months, Has It Happened That The Food You Bought Just Didn't Last And You Didn't Have Money To Get More. No Information not available 04/24/2021 Within The Past 12 Months, Have You Worried That Your Food Would Run Out Before You Got Money To Buy More. No Information not available 04/24/2021 Fall Risk: Do You Feel Unsteady When Standing Or Walking? Yes Information not available 04/24/2021 We Know That How And When People Interact With Friends And Family Can Be Very Different From Person To Person. How Often Do You Have The Opportunity To See Or Talk To People That You Care About And Feel Close To? (Ex: Talking To Friends On The Phone Or Visiting Friends Or Family Or Going To Jainism Or Club Meetings) 3 Or 4 Times Per Week Information not available 04/24/2021 Excessive Alcohol Or Drug Use No Information not available 04/24/2021 We Know From Many Of Our Patients That Covering All Of Their Costs Can Be Difficult At Times. This Can Cause Stress And Impact Health. In The Past Year, Have You Been Unable To Get Any Of The Following When It Was Really Needed? No Information not available 04/24/2021 What Is Your Housing Situation Today? I Have Housing Information not available 04/24/2021 Would You Like Help Connecting To Resources? None Information not available 04/24/2021 Sex: Unknown Functional Status None recorded. Mental Status None recorded. Family History Relationship Description Onset Age of this Age Resolved Age Notes LastModified by Organization Details LastModified Time Father Coronary arterioscler osis [email or web address] Not available 04/24 13:39:28 Medical History Condition Response Coronary Artery Disease Y Depression N COPD N Diabetes N Cancer Y Stroke Y Asthma N High Cholesterol Y Pulmonary Embolism N Hypertension N Kidney Disease N Gynecological HistoryNo gynecological history recorded. Obstetrics History GPAL:G 0 P 0 0 0 0 Past Encounters Encounter ID Performer Location Encounter Start Date Encounter Closed Date Diagnosis/Indication Diagnosis SNOMED-CT Code Diagnosis ICD10 Code Diagnosis Note [id number] DAVID ANAYA NP [facility] [address] [place] [address] 04/24/2021 13:26:42 04/27/2021 11:02:56 Urinary tract infectious disease 38458921 N39.0 History of cerebrovascular accident 208502455 Z86.73 Health Concerns Section Related Observation LastModified by Organization Detai ls LastModified Time None Recorded Concern Status LastModified by Organization Details LastModified Time None Recorded Advance Directives Directive Y: Payers Encounter Date Sequence Insurance Name Policy Number Policy Duffy Covered Member ID Duffy Member ID Guarantor Name 04/24/2021 1 [place]IC[place]: [email or web address] Radha Hobson [id number] Radha Hobson Notes Date Note Type Note Provider Name and Address Organization Details Recorded Time 04/24/2021 text/html Pt has been having increased confusion every few days over the last few weeks. This morning she was having difficulty grabbing things with her hand, having difficulty with saying her name and focusing. She went to the ER 2 weeks ago after the sx had been present for a week. Has been in close contact with PCP over this whole time. Pt had a battery of tests and everything came back normal. No change in the sx since ER visit. states as the day goes on pt seems to normalize more. Pt has a neurologist but has not recently spoken with them. Pt went to [facility] ER 2 weeks ago when she went. States they checked for a UTI at that time and it was negative for a UTI. reports an odor to the urine and pt is straight cathed three times a day so increase risk for infection. DAVID ANAYA, BOGDAN [address], [place], [address], [place] [facility] 04/24/2021 16:56:39 OBGyn Episode No OBEpisode recorded.
--- OUTSIDE RECORDS SUMMARY | 2025-03-26 11:16 | XMS_ITS | Encounter Summary ---
Author Organization [facility] Address [address] [place] [address] Care Team Providers Care Sail Repair Person Name Role Phone Unavailable Primary Care Provider Unavailabl e Encounter Details Date Type Department Care Team (Late st Contact Info) Description 01/10/2025 Scanned Document [facility] [address] [place] [address] Pain Management, Scan Social History Tobacco Use [...]
--- OUTSIDE RECORDS SUMMARY | 2025-03-26 11:16 | XMS_ITS | Clinical Summary ---
Author Organization [facility] [address] [facility] Address [address] [place] [address] Phone Care Team Providers Care Dramatic Reader Name Role Phone Bree Spencer Primary Care Provider [phone] Allergies Active Allergy Reactions Criticality Noted Date Comments Amiodarone 07/15/2022 Other Reaction(s): OTHER Penicillin V 07/15/2022 Other Reaction(s): OTHER Medications metoprolol succinate (TOPROL-XL) 50 mg 24 hr tablet Take 1 tablet (50 mg total) by mouth 1 (one) time each day. Active furosemide (LASIX) 20 mg tablet Take 1 tablet (20 mg total) by mouth 1 (one) time each day. Active baclofen (LIORESAL) 10 mg tablet 1 tablet in the am, 0.5 tablet in the afternoon, 1 tablet at bedtime Active gabapentin (NEURONTIN) 600 mg tablet Take 1.5 tablets (900 mg total) by mouth 2 (two) times a day. Active calcium carb/vit D3/minerals (CALCIUM-VITAMIN D ORAL) Take 1 tablet by mouth 2 (two) times a day. calcium-vit theodore D (OSCAL) 250-125 MG-UNIT per tablet Active aspirin 81 mg EC tablet Take 1 tablet (81 mg total) by mouth 1 (one) time each day. Active digoxin (LANOXIN) 125 mcg (0.125 mg) tablet Take 1 tablet (125 mcg total) by mouth 1 (one) time each day. Active atorvastatin (LIPITOR) 40 mg tablet Take 1 tablet (40 mg total) by mouth 1 (one) time each day. Active levETIRAcetam (KEPPRA) 500 mg tablet Take 1 tablet (500 mg total) by mouth 2 (two) times a day. Active DULoxetine (CYMBALTA) [address] capsule Take 1 capsule (60 mg total) by mouth 1 (one) time each day. Active docusate sodium (COLACE) 250 mg capsule Take 1 capsule (250 mg total) by mouth 1 (one) time each day. Active levothyroxine (SYNTHROID, LEVOTHROID) 150 mcg tablet Take 1 tablet (150 mcg total) by mouth 1 (one) time each day. Active vibegron (Gemtesa) 75 mg tablet tablet Take 1 tablet (75 mg total) by mouth 1 (one) time each day. Active gabapentin (NEURONTIN) 300 mg capsule Take 1 capsule (300 mg total) by mouth 2 (two) times a day. Active DAILY MULTI-VITAMIN ORAL Take 1 tablet by mouth 1 (one) time each day. Active biotin 1 mg tablet Take 1 tablet (1 mg total) by mouth 1 (one) time each day. Active alendronate (FOSAMAX) 70 mg tablet Take 1 tablet (70 mg total) by mouth every 7 (seven) days. Active warfarin (COUMADIN) 2 mg tablet Take 1.5 Tablets by mouth See Admin Instruction s. May cause heavy bleeding. Take at same time every day. Do not change dietary habits 2 Active lactulose (Constulose) solutionIndicatio ns:Constipation, unspecified constipation type Take 30 mL (20 g total) by mouth 2 (two) times a day. 5400 mL 3 5 03/06/20 26 Active omeprazole (PriLOSEC) [address] capsuleIndication s:Gastroesophagea l reflux disease without esophagitis Take 1 capsule (20 mg total) by mouth 1 (one) time each day. Do not crush or chew. 90 each 3 5 03/06/20 26 Active lactulose (Constulose) solutionIndicatio ns:Constipation, unspecified constipation type Take 30 mL (20 g total) by mouth 2 (two) times a day. 1800 mL 3 4 03/06/20 25 Discontinu ed(Reorder ) omeprazole (PriLOSEC) [address] capsuleIndication s:Gastroesophagea l reflux disease without esophagitis Take 1 capsule (20 mg total) by mouth 1 (one) time each day. Do not crush or chew. 30 each 5 03/06/20 25 Discontinu ed(Reorder ) Active Problems Problem Noted Date Diagnosed Date Edema 07/15/2022 Overview (01/26/2025): The patient has substantial lower extremity edema and this is due to her inactivity there is no other indication of third space volume no JVD no pulmonary edema no ascites. She may have venous insufficiency present she has compression socks the skin is intact at this point I would not give this patient diuretics because this only can promote an RIKKI Atrial fibrillation (CMS/HCC V24, CMS/HCC V28) 0 12/23/2021 Overview (01/26/2025): Last Assessment & Plan: Patient has chronic atrial fibrillation that is rate controlled and anticoagulated Hyperlipidemia 12/23/2021 Overview (01/26/2025): Last Assessment & Plan: Last LDL was 69. Continue with statin as prescribed. Encounters Date Type Department Care Team Description 03/06/2025 3:30 PM EDT Office Visit Gastroenterology - [address] [address] Fabiola Valdez NP Slow transit constipation (Primary Dx); Constipation, unspecified constipation type; Gastroesophageal reflux disease without esophagitis; Gastroesophageal reflux disease, unspecified whether esophagitis present 02/06/2025 Telephone Gastroenterology - [address] [address] Fabiola Valdez NP Med Refill 02/06/2025 Telephone Gastroenterology - [address] [address] Janak Malhotra [place] 01/30/2025 Telephone Gastroenterology - [address] [address] Deanna Ray MD Med Refill from Last 3 Months Social History Tobacco Use Types Packs/Day Years Used Date Smoking Tobacco: Former Smokeless Tobacco: Never Alcohol Use Standard Drinks/Week Comments Yes 0 (1 standard drink = 0.6 oz pur e alcohol) Comments Unknown Sex and Gender Information Value Date Recorded Sex Assigned at Not on file Legal Sex Female 10:32 AM EST Gender Identity Not on file Sexual Orientation Not on file Obstetrics History Last Filed Vital Signs Vital Sign Reading Time Taken Comments Blood Pressure 102/60 07/15/2022 2:19 PM EDT Sit ting L Arm Pulse 94 07/15/2022 2:19 PM EDT Temperature - - Respiratory Rate - - Oxygen Saturation - - Inhaled Oxygen Concentration - - Weight 61.2 kg (135 lb) 03/06/2025 3:19 PM EDT Height 154.9 cm (5' 1 ) 03/06/2025 3:19 PM EDT Body Mass Index 25.51 03/06/2025 3:19 PM EDT Plan of Treatment Upcoming Encounters Date Type Department Care Team (Late st Contact Info) Description 04/03/2025 2:10 PM EDT Office Visit [facility] [address] [place] [address] Brynn Drew NP [address] [place] [address] [address] [place] [address] Health Maintenance Due Date Last Done Comments Breast Cancer Screening 1950 DTaP,Tdap,and Td Vaccines (1 - Tdap) 1971 Zoster Vaccines (1 of 2) 1971 Pneumococcal Vaccine: 50+ Years (3 of 3 - PCV) 12/05/2011 12/05/2010, 12/22/2004 Cholesterol Screening (Lipid Panel) 10/26/2022 Depression Screening 10/26/2022 Falls Risk Assessment 10/26/2022 Hepatitis C Screening 10/26/2022 Social Influencers of Health Screening 10/26/2022 Medicare Annual Wellness Visit 12/22/2023 12/22/2022 Hypertension/CHF/CAD Annual BMP Blood Test 01/31/2025 COVID-19 Vaccine (7 - Moderna risk season) 2025 12/26/2024, 09/17/2023, 04/18/2022, Additional history exists RSV Immunization Adult Patients (1 - 1-dose 75+ series) 2027 Osteoporosis Screening (Bone Density Screening) 06/21/2028 06/21/2018 Colorectal Cancer Screening: Colonoscopy 03/07/2035 03/07/2025 Influenza Vaccine Completed 12/26/2024, , 09/08/2022, Additional history exists HIB Vaccines Aged Out No longer eligi [...] patient's age to complete this topic Meningococcal B Vaccine Aged Out No l onger eligible based on patient's age to complete this topic RSV Immunization Patients Under 20 months Aged Out No longer eligible based on patient's age to complete this topic Varicella Vaccines Aged Out No longer eligible based on patient's age to complete this topic Procedures Procedure Name Priority Date/Time Associated Diagnosis Comments EXTERNAL COLONOSCOPY REPORT Routine 03/07/2025 2:[address] [facility] DEXA AXIAL SKELETON Routine 06/21/2018 11:32 AM EDT Age-related osteoporosis without current pathological fracture from Last 3 Months or Most Recently Relevant to Health Maintenance Results * External Colonoscopy Report (03/07/2025 2:36 PM EDT) Anatomical Region Laterality Modality Endoscopy us Historical Provider GI~PROCEDURE ORDERABLES F inal Result * [facility] DEXA AXIAL SKELETON (06/21/2018 11:32 AM EDT) Anatomical Region Laterality Modality Mammography 06/21/2018 9:57 AM EDT Narrative 06/21/2018 11:32 AM EDT [facility] Diagnostic Imaging Department [address] [place] [address] Patient: ??RADHA ARNOLD ?/Age/Sex: 1950 - 67 - F Unit#: ??[id number] ? Location/Status: ??SPDIMAM/REG CLI ? Mnemonic/Ordering Site: ??MAMDEXAAX/SPMAM Ordering Physician: ??DAYAMI Kee MD [facility] Dexa Axial Skeleton - 06/21/18 - 1018 [...] probability of hip fracture of 5.5%. Code 85547 Dictating Physician: ??LANDON TUTTLE MD Electronically Signed by: ??LANDON TUTTLE MD Dic Date/Time: ??06/21/18 1131 Sign date/Time: ??06/21/18 1132 Procedure Note Landon Tuttle MD - 11/10/2022 [facility] Diagnostic Imaging Department [address] [place], [place] [id number] Patient: RADHA ARNOLD /Age/Sex: 1950 - 67 - F Unit#: [id number] Location/Status: [facility] Ordering Physician: DAYAMI Kee MD [facility] Dexa Axial Skeleton - 06/21/18 - 1018 [...] density of the femurs bilaterally is 0.733 gm/bo7eilws is 73% of that of young normals [...] probability of hip fracture of 5.5%. Code 92070 Dictating Physician: LANDON TUTTLE MD Electronically Signed by: LANDON TUTTLE MD Dic Date/Time: 06/21/18 1131 Sign date/Time: 06/21/18 1132 Dayami Kee MD IMG BI PROCEDURES Final Result from Last 3 Months or Most Recently Relevant to Health Maintenance Insurance MEDICARE Advance Directives Documents on File Type Date Recorded Patient Packaging Mechanic Expl anation Health Care Decision (hx) 08/06/2022 [...] (hx) 06/06/2016 AD PRICE DIRECTIVE Care Teams Dramatic Reader Relationship Specialty Start Date End Date Bree Spencer [address] [place] [address] [place] [address] PCP - General Family Medicine 03/06/25
== END 2025-03-26 10:39 | disposition home or self-care (01) ==
LOC: HO.PMC 10:00
PROVIDERS: PCP Physician Assistant Medical; Visit Provider Internal Medicine
DX: M25.562 Pain in left knee (principal); G89.29 Other chronic pain
CPT/HCPCS: 99213

== ENCOUNTER → 2025-03-26 09:59 | Outpatient (BNVA) | payer MEDICARE, SELFPAY | PROVIDERS: PCP Physician Assistant Medical; Visit Provider Internal Medicine | DX: M25.562 Pain in left knee (principal); G89.29 Other chronic pain | CPT/HCPCS: 99212 ==